=== PATIENT | female | born 1940 | race Caucasian/White ===

== ENCOUNTER 2023-03-12 11:14 | Outpatient (OUT) | payer MEDICARE, SELFPAY ==
[2023-03-12 11:58] LABS: Basophils Percent Auto 0.9 % (0.2-2.0); Eosinophils Absolute Auto 0.1 10^3/uL (0.0-0.7); Hemoglobin 12.2 g/dL (12.0-16.0); Immature Granulocytes Abs Auto 0.02 10^3/uL (0.00-0.03); Immature Granulocytes Pct Auto 0.5 % (0.0-0.5); Lymphocytes Absolute Auto 0.8 10^3/uL (1.2-3.8); Lymphocytes Percent Auto 18.2 % (20.5-60.0); Mean Corpuscular HGB Conc 31.3 g/dL (29.9-35.2); Mean Corpuscular Hemoglobin 27.3 pg (26.7-34.0); Mean Corpuscular Volume 87.2 fL (81.0-99.0); Mean Platelet Volume 9.2 fL (9.5-13.5); Monocytes Absolute Auto 0.4 10^3/uL (0.3-0.8); Neutrophils Percent Auto 68.4 % (43.0-75.0); Platelet Count 188 10^3/uL (150-450); Red Blood Count 4.47 10^6/uL (4.20-5.40); Red Cell Distribution Width 14.5 % (11.0-15.0); White Blood Count 4.4 10^3/uL (4.0-11.0)
[2023-03-12 12:13] LABS: Bilirubin Urine NEGATIVE (NEGATIVE); Blood Urine SMALL (NEGATIVE); Clarity Urine CLEAR (CLEAR); Color Urine LT. YELLOW (YELLOW); Glucose Urine UA NEGATIVE (NEGATIVE); Ketones Urine NEGATIVE (NEGATIVE); Leukocyte Esterase Urine SMALL (NEGATIVE); Nitrite Urine POSITIVE (NEGATIVE); Protein Urine NEGATIVE (NEG/TRACE); Urobilinogen Urine 0.2 EU/dL (0.2-1.0); pH Urine 6.5 (5.0-9.0)
[2023-03-12 12:19] LABS: Percent Iron Saturation 21.4 %
[2023-03-12 12:27] LABS: Alanine Aminotransferase 30 U/L (14-59); Albumin Globulin Ratio 0.9; Albumin Level 3.7 g/dL (3.4-5.0); Alkaline Phosphatase 80 U/L (46-116); Anion Gap 9.3; Aspartate Amino Transferase 27 U/L (15-37); BUN Creatinine Ratio 17.2; Bilirubin Total 0.5 mg/dL (0.2-1.0); Calcium 9.3 mg/dL (8.5-10.1); Carbon Dioxide 30.4 mmol/L (21.0-32.0); Chloride 100 mmol/L (98-107); Estimated GFR (African America >60 (>=60); Estimated GFR (Non-African Ame >60 (>=60); Globulin 3.9 g/dL; Glucose 104 mg/dL (74-106); Magnesium 1.7 mg/dL (1.8-2.4); Potassium 3.7 mmol/L (3.5-5.1); Sodium 136 mmol/L (136-145); Thyroid Stimulating Hormone 0.983 uIU/mL (0.358-3.740); Total Protein 7.6 g/dL (6.4-8.2)
[2023-03-12 13:58] LABS: Free T4 0.91 ng/dL (0.76-1.46); Vitamin B12 >6000.0 pg/mL (193.0-986.0)
[2023-03-13 06:14] LABS: Transferrin 232 mg/dL (149-313)
== END 2023-03-12 11:15 | disposition home or self-care (01) ==
LOC: LAB 11:21
PROVIDERS: PCP Family Medicine; Visit Provider Family Medicine
DX: I25.118 Atherosclerotic heart disease of native coronary artery with other forms of angina pectoris (principal); R54 Age-related physical debility; D50.0 Iron deficiency anemia secondary to blood loss (chronic); I10 Essential (primary) hypertension; G62.89 Other specified polyneuropathies; R82.89 Other abnormal findings on cytological and histological examination of urine
CPT/HCPCS: 36415; 80053; 81003; 82607; 82728; 82746; 83540; 83550; 83735; 84439; 84443; 84466; 85025; 87086; 87150; 87186

== ENCOUNTER 2023-05-06 10:05 | Outpatient (OUT) | payer MEDICARE, SELFPAY ==
--- NOTE | 2023-05-06 10:12 | XR_ITS ---
The [address] [address] Patient Name: NOLVIA FERRARI MRN: [id number] date: 1940 Sex: F Assigned Patient Location: [facility] Current Patient Location: [facility] Accession/Order Number: [id number] Exam Date: 05/06/2023 10:24 Report Date: 05/06/2023 13:13 At the request of: NON-STAFF PHYSICIAN Procedure: XR abdomen 1V EXAMINATION: XR abdomen 1V HISTORY: Kidney stone N20.0 COMPARISON: XR lumbar spine 03/06/2020, XR sacrum/coccyx 06/09/2018 FINDINGS: KIDNEY/URETER - RIGHT: No visible renal or ureteral calcifications. KIDNEY/URETER - LEFT: Small calcification projecting over inferior pole; kidney stone versus bowel content. PELVIS: Calcifications within the right and left adnexa of uncertain etiology. BOWEL: No abnormal dilation or deviation. BONES: Degenerative changes of the spine and prior compression fractures. OTHER: Thin curvilinear wire-like density projecting over left epigastric region of uncertain etiology. XR/XR abdomen 1V IMPRESSION: 1. Possible left nephrolithiasis. 2. Pelvic calcifications are suspected to be due to atherosclerotic disease is seen on prior study. A distal ureteral stone cannot be completely excluded. Electronically authenticated by: LOIDA WHITE Date: 05/06/2023 13:13
== END 2023-05-06 10:06 | disposition home or self-care (01) ==
LOC: RAD 10:07
PROVIDERS: PCP Family Medicine
DX: N20.0 Calculus of kidney (principal); R93.5 Abnormal findings on diagnostic imaging of other abdominal regions, including retroperitoneum; R93.422 Abnormal radiologic findings on diagnostic imaging of left kidney
CPT/HCPCS: 74018

== ENCOUNTER 2023-07-20 07:12 | Outpatient (RCR) | payer MEDICARE, SELFPAY ==
--- NOTE | 2023-03-16 14:46 | CR1_ITS ---
The 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
--- NOTE | 2023-04-14 14:13 | CR1_ITS ---
The 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
--- NOTE | 2023-05-12 08:35 | CR1_ITS ---
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
--- NOTE | 2023-06-11 10:29 | CR1_ITS ---
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
--- NOTE | 2023-07-16 11:57 | CR1_ITS ---
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
== END 2023-07-20 12:43 | disposition home or self-care (01) ==
LOC: CR 07:12
PROVIDERS: PCP Family Medicine; Visit Provider Internal Medicine Cardiovascular Disease
DX: I25.119 Atherosclerotic heart disease of native coronary artery with unspecified angina pectoris (principal); Z95.1 Presence of aortocoronary bypass graft
CPT/HCPCS: 93797; 93798

== ENCOUNTER 2023-10-05 08:18 | Outpatient (OUT) | payer MEDICARE, SELFPAY ==
[2023-10-05 10:04] LABS: Alanine Aminotransferase 35 U/L (14-59); Albumin Globulin Ratio 0.9; Albumin Level 3.6 g/dL (3.4-5.0); Alkaline Phosphatase 65 U/L (46-116); Anion Gap 11.9; Aspartate Amino Transferase 28 U/L (15-37); BUN Creatinine Ratio 28.9; Bilirubin Total 0.8 mg/dL (0.2-1.0); Calcium 9.3 mg/dL (8.5-10.1); Carbon Dioxide 30.1 mmol/L (21.0-32.0); Chloride 103 mmol/L (98-107); Chol HDL Ratio 1.8; Cholesterol 123 mg/dL (<=200); Estimated GFR (African America >60 (>=60); Estimated GFR (Non-African Ame 60 (>=60); Globulin 3.8 g/dL; Glucose 97 mg/dL (74-106); HDL Cholesterol 68 mg/dL (40-60); Sodium 141 mmol/L (136-145); Total Protein 7.4 g/dL (6.4-8.2); Triglycerides 60 mg/dL (<=150)
== END 2023-10-05 08:19 | disposition home or self-care (01) ==
LOC: LAB 08:20
PROVIDERS: PCP Family Medicine
DX: I25.10 Atherosclerotic heart disease of native coronary artery without angina pectoris (principal); E78.5 Hyperlipidemia, unspecified; E87.6 Hypokalemia
CPT/HCPCS: 36415; 80053; 80061

== ENCOUNTER 2024-01-20 15:26 | Outpatient (RCR) | payer MEDICARE, SELFPAY | END 2024-02-18 16:44 | disposition home or self-care (01) | LOC: PT 15:26 | PROVIDERS: PCP Family Medicine; Visit Provider Family Medicine | DX: R26.89 Other abnormalities of gait and mobility (principal) | CPT/HCPCS: 97110; 97112; 97161; 97530 ==

== ENCOUNTER 2024-04-14 12:55 | Outpatient (REF) | payer MEDICARE, SELFPAY ==
[2024-04-14 14:55] LABS: C. Difficile PCR NEGATIVE (NEGATIVE)
[2024-04-15 15:08] LABS: Giardia lamblia Ag, EIA Negative (Negative)
[2024-04-17 22:06] LABS: Calprotectin, Fecal 78 ug/g (0-120)
== END 2024-04-14 12:56 | disposition home or self-care (01) ==
LOC: LAB 12:55
PROVIDERS: PCP Family Medicine; Visit Provider Family Medicine
DX: R19.7 Diarrhea, unspecified (principal)
CPT/HCPCS: 83993; 87045; 87046; 87177; 87209; 87329; 87427; 87493

== ENCOUNTER 2024-04-21 09:16 | Outpatient (OUT) | payer MEDICARE, SELFPAY ==
[2024-04-21 10:16] LABS: Alanine Aminotransferase 38 U/L (14-59); Albumin Globulin Ratio 1.1; Albumin Level 3.8 g/dL (3.4-5.0); Alkaline Phosphatase 80 U/L (46-116); Aspartate Amino Transferase 30 U/L (15-37); BUN Creatinine Ratio 21.1; Bilirubin Total 0.7 mg/dL (0.2-1.0); Calcium 9.5 mg/dL (8.5-10.1); Chloride 105 mmol/L (98-107); Chol HDL Ratio 1.6; Cholesterol 94 mg/dL (<=200); Estimated GFR (African America >60 (>=60); Estimated GFR (Non-African Ame 60 (>=60); Globulin 3.5 g/dL; Glucose 94 mg/dL (74-106); HDL Cholesterol 57 mg/dL (40-60); LDL Cholesterol Calculated 27.4 mg/dL; Sodium 143 mmol/L (136-145); Total Protein 7.3 g/dL (6.4-8.2); Triglycerides 48 mg/dL (<=150); VLDL CHOLESTEROL 9.6 mg/dL
== END 2024-04-21 09:17 | disposition home or self-care (01) ==
LOC: LAB 09:18
PROVIDERS: PCP Family Medicine; Visit Provider Internal Medicine Interventional Cardiology
DX: E78.5 Hyperlipidemia, unspecified (principal); I25.118 Atherosclerotic heart disease of native coronary artery with other forms of angina pectoris; I50.20 Unspecified systolic (congestive) heart failure; I25.5 Ischemic cardiomyopathy; I11.0 Hypertensive heart disease with heart failure
CPT/HCPCS: 36415; 80053; 80061

== ENCOUNTER 2025-03-29 10:53 | Outpatient (RCR) | payer MEDICARE, SELFPAY | END 2025-06-08 12:09 | disposition home or self-care (01) | LOC: PT 10:53 | PROVIDERS: PCP Family Medicine; Visit Provider Family Medicine | DX: R53.1 Weakness (principal); R26.81 Unsteadiness on feet; M54.2 Cervicalgia | CPT/HCPCS: 97110; 97112; 97140; 97162; 97530 ==

== ENCOUNTER 2025-04-11 09:51 | Outpatient (RCR) | payer MEDICARE, SELFPAY | END 2025-05-29 07:01 | disposition home or self-care (01) | LOC: ST 09:51 | PROVIDERS: PCP Family Medicine; Visit Provider Family Medicine | DX: M62.542 Muscle wasting and atrophy, not elsewhere classified, left hand (principal); M54.2 Cervicalgia; R49.0 Dysphonia | CPT/HCPCS: 92507; 92524 ==

== ENCOUNTER 2025-04-11 09:51 | Outpatient (RCR) | payer MEDICARE, SELFPAY | END 2025-04-12 14:18 | disposition home or self-care (01) | LOC: OT 09:51 | PROVIDERS: PCP Family Medicine; Visit Provider Family Medicine | DX: M62.542 Muscle wasting and atrophy, not elsewhere classified, left hand (principal); M54.2 Cervicalgia | CPT/HCPCS: 97110; 97166 ==

== ENCOUNTER 2025-04-12 15:25 | Outpatient (OUT) | payer MEDICARE, SELFPAY ==
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
--- OUTSIDE RECORDS SUMMARY | 2025-04-12 13:45 | XMS_ITS | Encounter Summary ---
Author Organization [facility] Address [address] [place] [address] Phone Care Team Providers Care Physician Office Specialist Name Role Phone Christiano Taylor Primary Care Provider [phone] Reason for Referral * Consultation (Routine) - Authorized Specialty Diagnoses / Procedures Referred By Volodymyr t Referred To Contact Cardiology Diagnoses Coronary artery disease involving coronary bypass graft of [place] heart without angina pectoris Procedures Follow Up In Cardiology Colette Trevizo MD [address] [place] [address] Phone: tel: fax: Colette Trevizo MD [address] [place] [address] Phone: tel: fax: Referral ID Status Reason Start Date Expiration Date V isits Requested Visits Authorized [id number] Authorized 04/12/2025 04/12/2026 1 1 Reason for Visit * Reason Comments Follow-up [facility] for coronary artery disease, denies cardiac c/o at this time. * Consultation (Routine) - Authorized Specialty Diagnoses / Procedures Referred By Volodymyr t Referred To Contact Cardiology Diagnoses Coronary artery disease of [place] artery of [place] heart with stable angina pectoris Procedures Follow Up In Cardiology Colette Trevizo MD [address] [place] [address] Phone: tel: fax: Colette Trevizo MD [address] [facility] [address] [place] [address] Phone: tel: fax: Referral ID Status Reason Start Date Expiration Date V isits Requested Visits Authorized [id number] Authorized 10/26/2024 10/26/2025 1 1 Encounter Details Date Type Department Care Team (Late st Contact Info) Description 04/12/2025 1:45 PM EDT Office Visit [facility] [address] [facility] [address] [place] [address] Colette Trevizo MD [address] [facility] [address] [place], [place] [id number] Coronary artery disease involving coronary bypass graft of [place] heart without angina pectoris; History of coronary artery bypass graft; Essential hypertension; Chronic kidney disease, stage 3b (Multi); Hypokalemia; Chronic systolic congestive heart failure; YOEL (obstructive sleep apnea); BMI 21.0-21.9, adult; Never smoked tobacco; Mixed hyperlipidemia; Coronary artery disease of [place] artery of [place] heart with stable angina pectoris Discharge Disposition: Home Social History Tobacco Use Types Packs/Day Years Used Date Smoking Tobacco: Never Smokeless Tobacco: Never Tobacco Cessation:Counseling Given: Not Answered Alcohol Use Standard Drinks/Week Comments Never 0 (1 standard drink = 0.6 oz pur e alcohol) Overall Financial Resource Strain (CARDIA) Answe r Date Recorded How hard is it for you to pa y for the very basics like food, housing, medical care, and heating? Not hard at all 06/12/2024 PRAPARE - Transportation Answer Date Re corded In the past 12 months, has l ack of transportation kept you from medical appointments or from getting medications? No 11/2023 In the past 12 months, has l ack of transportation kept you from meetings, work, or from getting things needed for daily living? No 06/12/2024 Housing Stability Vital Sign Answer Rodo e Recorded In the last 12 months, was t here a time when you were not able to pay the mortgage or rent on time? No 06/12/2024 In the past 12 months, how m any times have you moved where you were living? 0 06/12/2024 At any time in the past 12 m [facility], were you homeless or living in a fci (including now)? No 06/12/2024 Comments Unknown Sex and Gender Information Value Date Recorded Sex Assigned at Female 05/24/2024 4:58 AM EDT Legal Sex Female 10:09 AM EST Gender Identity Female 05/24/2024 4:58 AM EDT Sexual Orientation Not on file documented as of this encounter Last Filed Vital Signs Vital Sign Reading Time Taken Comments Blood Pressure 110/60 04/12/2025 2:02 PM EDT Pulse 60 04/12/2025 2:02 PM EDT Temperature - - Respiratory Rate - - Oxygen Saturation - - Inhaled Oxygen Concentration - - Weight 52.4 kg (115 lb 9.6 oz) 04/12/2025 2:02 P M EDT Height 154.9 cm (5' 1 ) 04/12/2025 2:02 PM EDT Body Mass Index 21.84 04/12/2025 2:02 PM EDT documented in this encounter Functional Status * Are you deaf or do you have serious difficulty hearing? Answer Date of Assessment Author No 06/13/2024 3:42 PM Stephania Zepeda RN * Are you blind or do you have serious difficulty seeing, even when wearing glasses? Answer Date of Assessment Author No 06/13/2024 3:42 PM Stephania Zepeda RN * Do you have serious difficulty walking or climbing stairs? Answer Date of Assessment Author Yes 06/13/2024 3:42 PM Stephania Zepeda RN * Do you have serious difficulty dressing or bathing? Answer Date of Assessment Author No 06/13/2024 3:42 PM Stephania Zepeda RN * Because of a physical, mental, or emotional condition, do you have serious difficulty doing errandsalone such as visiting the doctor? Answer Date of Assessment Author No 06/13/2024 3:42 PM Stephania Zepeda RN documented as of this encounter Mental Status * Because of a physical, mental, or emotional condition, do you have serious difficulty concentrating, remembering, or making decisions? (5 years old or older) Answer Entry Date Author No 06/13/2024 3:42 PM Stephania Zepeda RN documented in this encounter Patient Instructions * Patient Instructions* Mayra Barraza LPN - 04/12/2025 1:45 PM EDT Please bring all medicines, vitamins, and herbal supplements with you when you come to the office. Prescriptions will not be filled unless you are compliant with your follow up appointments or have a follow up appointment scheduled as per instruction of your physician. Refills should be requested at the time of your visit. BMI normal documented in this encounter Plan of Treatment Upcoming Encounters Date Type Department Care Team (Late st Contact Info) Description 04/22/2026 12:30 PM EDT Office Visit [facility] [address] [facility] [address] [place] [address] Colette Trevizo MD [address] [facility] [address] [place] [address] Scheduled Orders Name Type Priority Associated Diagnoses Orde r Schedule Basic Metabolic Panel Lab Routine Chronic kidney disease, stage 3b (Multi) Chronic systolic congestive heart failure Expected: 04/12/2025 (Approximate), Expires: 04/12/2026 Lipid Panel Lab Routine Coronary artery disease involving coronary bypass graft of [place] heart without angina pectoris History of coronary artery bypass graft Expected: 04/12/2025, Expires: 04/12/2026 Comprehensive Metabolic Panel Lab Routine Coronary artery disease involving coronary bypass graft of [place] heart without angina pectoris Chronic kidney disease, stage 3b (Multi) Chronic systolic congestive heart failure Expected: 04/12/2025, Expires: 04/12/2026 documented as of this encounter Visit Diagnoses Diagnosis Coronary artery disease involving coronary bypass graft of [place] heart without angina pectoris History of coronary artery bypass graft Postsurgical aortocoronary bypass status Essential hypertension Unspecified essential hypertension Chronic kidney disease, stage 3b (Multi) Hypokalemia Hypopotassemia Chronic systolic congestive heart failure YOEL (obstructive sleep apnea) Obstructive sleep apnea (adult) (pediatric) BMI 21.0-21.9, adult Never smoked tobacco Mixed hyperlipidemia Coronary artery disease of [place] artery of [place] heart with stable angina pectoris documented in this encounter Additional Health Concerns Assessment Noted Time A fall risk assessment has been complete d for the patient 04/12/2025 2:02 PM EDT documented as of this encounter Care Teams Physician Office Specialist Relationship Specialty Start Date End Date Christiano Taylor DO PCP - General 11/12/22 documented as of this encounter
--- OUTSIDE RECORDS SUMMARY | 2025-04-12 15:34 | XMS_ITS | Encounter Summary ---
Author Organization [facility] Address [address] [place] [address] Care Team Providers Care Dragline Engineer Name Role Phone Christiano Taylor DO Unavailable [phone] Christiano Taylor DO Primary Care Provider +- [phone] Encounter Details Date Type Department Care Team (Late st Contact Info) Description 07/26/2024 [facility] [address] [facility] [place] [address] [place] [address] Christiano Taylor, DO [address] [facility] [place] [address] [place] [address] Social History Tobacco Use Types Packs/Day Years Used Date Smoking Tobacco: Never Passive Smoke Exposure: Never Smokeless Tobacco: Never Alcohol Use Standard Drinks/Week Comments Never 0 [...] Date Recorded Patient Health Questionnaire-2 Score 0 04/13/2024 Comments Unknown Sex and Gender Information Value Date Recorded Sex Assigned at Not on file Legal Sex Female 6:57 PM EDT Gender Identity Not on file Sexual Orientation Not on file documented as of this encounter Plan of Treatment Upcoming Encounters Date Type Department Care Team (Late st Contact Info) Description 06/05/2025 1:45 PM EDT [facility] Visit [facility] 703 [facility] 150 [place] [address] Wally Gonzales MD [address] [facility] 150 [place] [address] 06/28/2025 11:20 AM EST Procedure Visit [facility] 112 [facility] 120 [place] [address] Tawanda Girard DPM 3006 [facility] 5 [place] [address] documented as of this encounter Visit Diagnoses Not on filedocumented in this encounter Care Teams Dragline Engineer Relationship Specialty Start Date End Date Christiano Taylor DO [address] [facility] [address] [place] [address] PCP - [employer] 08/09/20 Christiano Taylor DO [address] [facility] 230 [place] [address] PCP - General Family Medicine 03/09/23 documented as of this encounter
--- OUTSIDE RECORDS SUMMARY | 2025-04-12 15:34 | XMS_ITS | Encounter Summary ---
Author Organization [facility] Address [address] [place] [address] Care Team Providers Care Natural Gas Technician Name Role Phone Christiano Taylor DO Unavailable [phone] Christiano Taylor DO Primary Care Provider +- [phone] Encounter Details Date Type Department Care Team (Late st Contact Info) Description 07/11/2024 Abstract [facility] [address] [facility] [place] [address] [place] [address] Christiano Taylor, DO [address] [facility] [place] [address] [place] [address] Social History Tobacco Use Types Packs/Day Years [...] EDT Office Visit [facility] 703 [facility] 150 [place] [address] Wally Gonzales MD 703 [facility] 150 [place] [address] 06/28/2025 11:20 AM EST Procedure Visit [facility] 112 [facility] 120 [place] [address] Tawanda Girard DPM 3006 [facility] 5 [place] [address] documented as of this encounter Visit Diagnoses Not on filedocumented in this encounter Care Teams Natural Gas Technician Relationship Specialty Start Date End Date Christiano Taylor DO [address] [facility] 230 [place] [address] PCP - [employer] 08/09/20 Christiano Taylor DO [address] [facility] 230 [place] [address] PCP - General Family Medicine 03/09/23 documented as of this encounter
--- OUTSIDE RECORDS SUMMARY | 2025-04-12 15:34 | XMS_ITS | Encounter Summary ---
Author Organization [facility] Address [address] [place] [address] Care Team Providers Care Director Of Corporate Communications Name Role Phone Christiano Taylor DO Unavailable [phone] Christiano Taylor DO Primary Care Provider +- [phone] Encounter Details Date Type Department Care Team (Late st Contact Info) Description 11/28/2024 Abstract [facility] [address] [facility] [place] [address] [place] [address] Christiano Taylor, DO [address] [facility] [place] [address] [place] [address] Social History Tobacco Use Types Packs/Day Years [...] EDT Office Visit [facility] 703 [facility] 150 [place] [address] Wally Gonzales MD 703 [facility] 150 [place] [address] 06/28/2025 11:20 AM EST Procedure Visit [facility] [address] [facility] 120 [place] [address] Tawanda Girard DPM 3006 [facility] 5 [place] [address] documented as of this encounter Visit Diagnoses Not on filedocumented in this encounter Care Teams Director Of Corporate Communications Relationship Specialty Start Date End Date Christiano Taylor DO [address] [facility] 230 [place] [address] PCP - [employer] 08/09/20 Christiano Taylor DO [address] [facility] 230 [place] [address] PCP - General Family Medicine 03/09/23 documented as of this encounter
--- OUTSIDE RECORDS SUMMARY | 2025-04-12 15:34 | XMS_ITS | Encounter Summary ---
Author Organization [facility] Address [address] [place] [address] Care Team Providers Care Puff Ironer Name Role Phone Christiano Taylor DO Unavailable [phone] Christiano Taylor DO Primary Care Provider +- [phone] Encounter Details Date Type Department Care Team (Late st Contact Info) Description 10/05/2024 Orders Only [facility] [place] [facility] [address] [facility] [address] [place] [address] [place] [phone] Christiano Taylor, DO [address] [facility] [place] [address] [place] [address] Social History Tobacco Use Types Packs/Day Years [...] Date Recorded Patient Health Questionnaire-2 Score 0 09/22/2024 Comments Unknown Sex and Gender Information Value Date Recorded Sex Assigned at Not on file Legal Sex Female 6:57 PM EDT Gender Identity Not on file Sexual Orientation Not on file documented as of this encounter Plan of Treatment Upcoming Encounters Date Type Department Care Team (Late st Contact Info) Description 06/05/2025 1:45 PM EDT Office Visit [facility] [address] [facility] 150 [place] [address] Wally Gonzales MD 703 [facility] 150 [place] [address] 06/28/2025 11:20 AM EST Procedure Visit [facility] 112 [facility] 120 [place] [address] Tawanda Girard DPM 3006 [facility] 5 [place] [address] documented as of this encounter Procedures Procedure Name Priority Date/Time Associated Diagnosis Comments BI MAMMOGRAM SCREENING BILATERAL Routine 10/04/2024 10:14 AM EST documented in this encounter Results * Bilateral screening mammogram (10/04/2024 10:14 AM EST) Anatomical Region Laterality Modality Breast Bilateral Mammography us Christiano Taylor DO IMG BI PROCEDURES Final Re sult documented in this encounter Visit Diagnoses Not on filedocumented in this encounter Care Teams Puff Ironer Relationship Specialty Start Date End Date Christiano Taylor DO [address] [place] [address] [place] [address] PCP - [employer] 08/09/20 Christiano Taylor DO [address] [place] [address] [place] [address] PCP - General Family Medicine 03/09/23 documented as of this encounter
--- OUTSIDE RECORDS SUMMARY | 2025-04-12 15:34 | XMS_ITS | Encounter Summary ---
Author Organization [facility] Address [address] [place] [address] Care Team Providers Care Refrigeration Insulator Name Role Phone Christiano Taylor DO Unavailable [phone] Christiano Taylor DO Primary Care Provider [phone] Encounter Details Date Type Department Care Team (Late Contact Info) Description 07/14/2024 Clinisync Result Encounter [facility] External Department Unsolicited Provider, Generic External Data Social History Tobacco Use Types Packs/Day Years [...] Encounters Date Type Department Care Team (Late Contact Info) Description 06/05/2025 1:45 PM EDT [facility] Visit [facility] [address] [facility] [place] [address] [place] [address] Wally Gonzales MD 703 [facility] 150 [place] [address] 06/28/2025 11:20 AM EST Procedure [facility] 112 [facility] 120 [place] [address] Tawanda Girard DPM 3006 [facility] 5 [place] [address] documented as of this encounter Procedures Procedure Name Priority Date/Time Associated Diagnosis Comments XR CERVICAL SPINE 2-3 VIEWS 07/14/2024 3:54 PM EST documented in this encounter Results * XR cervical spine 2 or 3 views (07/14/2024 3:54 PM EST) Anatomical Region Laterality Modality Spine, C-spine Radiographic Kate ging 07/14/2024 3:54 PM EST Narrative 07/15/2024 8:07 PM EST Interpreted By: Kenji Quinonez, STUDY: XR CERVICAL SPINE 2-3 VIEWS; 07/14/2024 4:05 pm INDICATION: Signs/Symptoms:NECK PAIN. COMPARISON: 06/14/2024 ACCESSION NUMBER(S): [id number] ORDERING CLINICIAN: CHANEL CRUZ FINDINGS: Interval redemonstration of grade 1 anterolisthesis C3 on C4 unchanged redemonstration of anterior cervical discectomy and fusion C4 through C6 with interbody fusion with allograft. No evidence of hardware complication. Unchanged redemonstration of posterior hardware fusion spanning C2-T3. No evidence of hardware failure. Atlantoaxial relationship is maintained. Soft tissues intact. No fracture. Grade 1 anterolisthesis C7 on T1 similar to prior exam. Previously described fracture C6-C7 is not well visualized on this examination similar to prior. 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 IMPRESSION Unchanged redemonstration of anterior and posterior hardware fusion as described. No evidence of hardware complication. Grade 1 anterolisthesis C7 on T1 and C3 on C4. MACRO none Signed by: Kenji Quinonez 07/15/2024 8:07 PM Dictation workstation: [id number] Procedure Note Radiology, Radiologist, MD - 07/15/2024 Interpreted By: Kenji Quinonez, STUDY: XR CERVICAL SPINE 2-3 VIEWS; 07/14/2024 4:05 pm INDICATION: Signs/Symptoms:NECK PAIN. COMPARISON: 06/14/2024 ACCESSION NUMBER(S): [id number] ORDERING CLINICIAN: CHANEL CRUZ FINDINGS: Interval redemonstration of grade 1 anterolisthesis C3 on C4 unchanged redemonstration of anterior cervical discectomy and fusion C4 through C6 with interbody fusion with allograft. No evidence of hardware complication. Unchanged redemonstration of posterior hardware fusion spanning C2-T3. No evidence of hardware failure. Atlantoaxial relationship is maintained. Soft tissues intact. No fracture. Grade 1 anterolisthesis C7 on T1 similar to prior exam. Previously described fracture C6-C7 is not well visualized on this examination similar to prior. 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 IMPRESSION Unchanged redemonstration of anterior and posterior hardware fusion as described. No evidence of hardware complication. Grade 1 anterolisthesis C7 on T1 and C3 on C4. MACRO none Signed by: Kenji Quinonez 07/15/2024 8:07 PM Dictation workstation: [id number] Generic External Data Provider IMG XR PROCEDURES Final Result documented in this encounter Visit Diagnoses Not on filedocumented in this encounter Care Teams Refrigeration Insulator Relationship Specialty Start Date End Date Christiano Taylor DO [address] [place] [address] [place] [address] PCP - [employer] 08/09/20 Christiano Taylor, [address] [place] [address] [place] [address] PCP - General Family Medicine 03/09/23 documented as of this encounter
--- OUTSIDE RECORDS SUMMARY | 2025-04-12 15:34 | XMS_ITS | Encounter Summary ---
Author Organization [facility] Address [address] [place] [address] Care Team Providers Care Customer Experience Leader Name Role Phone Josh Taylor DO Unavailable [phone] Josh Taylor DO Primary Care Provider [phone]- [phone] Encounter Details Date Type Department Care Team (Late Contact Info) Description 01/25/2023 Clinisync Result Encounter [facility] External Department Unsolicited Provider, Generic External Data Social History Tobacco Use Types Packs/Day Years Used Date Smoking Tobacco: Never Assessed Comments Unknown Sex and Gender Information Value [...] 7[address] [facility] 150 [place] [address] Wally Gonzales MD 703 [facility] 150 [place] [address] 06/28/2025 11:20 AM EST Procedure Visit [facility] 112 [facility] 120 [place] [address] Tawanda Girard DPM 3006 [facility] 5 [place] [address] documented as of this encounter Procedures Procedure Name Priority Date/Time Associated Diagnosis Comments CHEST 2 VIEW PA AND LAT 01/25/2023 12:45 PM EDT documented in this encounter Results * CHEST 2 VIEW PA AND LAT (01/25/2023 12:45 PM EDT) Anatomical Region Laterality Modality Other 01/25/2023 12:4 5 PM EDT Narrative 01/26/2023 6:57 PM EDT Patient Name: MARSHA WHEATLEY STUDY: TH CHEST 2 VIEW PA AND LAT; 01/25/2023 12:45 pm 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 COMPARISON: 01/01/2023. ACCESSION NUMBER(S): [id number] ORDERING CLINICIAN: LUIS REDDING FINDINGS: CARDIOMEDIASTINAL SILHOUETTE: Cardiomegaly, mild aortic prominence and postoperative changes of the mediastinum are similar to prior. LUNGS: Bibasilar linear atelectasis or scarring is seen, left greater than right. No definite pleural effusion. No appreciable pneumothorax. ABDOMEN: No remarkable upper abdominal findings. BONES: Generalized osteopenia is present. There is increased thoracic kyphosis and lower thoracic mild levocurvature. A nonacute compression deformity near the thoracolumbar junction with kyphoplasty changes are again seen. Lower cervical hardware is again seen. Sclerotic lesion of the right humeral neck is similar to prior possibly an enchondroma or bone infarct. IMPRESSION: 1. Bibasilar linear atelectasis or scarring, left greater than right. 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 COMPARISON: 01/01/2023. ACCESSION NUMBER(S): [id number] ORDERING CLINICIAN: LUIS REDDING FINDINGS: CARDIOMEDIASTINAL SILHOUETTE: Cardiomegaly, mild aortic prominence and postoperative changes of the mediastinum are similar to prior. LUNGS: Bibasilar linear atelectasis or scarring is seen, left greater than right. No definite pleural effusion. No appreciable pneumothorax. ABDOMEN: No remarkable upper abdominal findings. BONES: Generalized osteopenia is present. There is increased thoracic kyphosis and lower thoracic mild levocurvature. A nonacute compression deformity near the thoracolumbar junction with kyphoplasty changes are again seen. Lower cervical hardware is again seen. Sclerotic lesion of the right humeral neck is similar to prior possibly an enchondroma or bone infarct. IMPRESSION: 1. Bibasilar linear atelectasis or scarring, left greater than right. Electronically signed by: JOSH JOE MD Generic External Data Provider [facility] Final Result documented in this encounter Visit Diagnoses Not on filedocumented in this encounter Care Teams Customer Experience Leader Relationship Specialty Start Date End Date Josh Taylor DO [address] [place] [address] [place] [address] PCP - [employer] 08/09/20 Josh Taylor DO [address] [place] [address] [place] [address] PCP - General Family Medicine 03/09/23 documented as of this encounter
--- OUTSIDE RECORDS SUMMARY | 2025-04-12 15:34 | XMS_ITS | Encounter Summary ---
Author Organization [facility] Address [address] [place] [address] Care Team Providers Care Autism Motor Specialist Name Role Phone Christiano Taylor DO Unavailable [phone] Christiano Taylor DO Primary Care Provider +- [phone] Encounter Details Date Type Department Care Team (Late st Contact Info) Description 07/19/2024 [facility] [address] [facility] [place] [address] [place] [address] Christiano Taylor, DO [address] [facility] [place] [address] [place] [address] Social History Tobacco Use Types Packs/Day Years [...] EDT Office Visit [facility] 703 [facility] 150 [place] [address] Wally Gonzales MD 703 [facility] 150 [place] [address] 06/28/2025 11:20 AM EST Procedure Visit [facility] 112 [facility] 120 [place] [address] Tawanda Girard DPM [address] [facility] 5 [place] [address] documented as of this encounter Visit Diagnoses Not on filedocumented in this encounter Care Teams Autism Motor Specialist Relationship Specialty Start Date End Date hCristiano Taylor DO [address] [facility] 230 [place] [address] PCP - [employer] 08/09/20 Christiano Taylor DO [address] [facility] 230 [place] [address] PCP - General Family Medicine 03/09/23 documented as of this encounter
--- OUTSIDE RECORDS SUMMARY | 2025-04-12 15:34 | XMS_ITS | Clinical Summary ---
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 01/05/2023 8:17 AM Healthcare Power of Atty 01/05/2023 8:17 AM Healthcare Power of Atty 01/05/2023 Living Will 01/05/2023 * Full Code (Latest Code Status on File) Date Activated Date Inactivated Comments 06/15/2024 2:50 PM Question Answer Comments Plan of Care: Code Status Discussion Completed Decision Maker: Patient * Full Code Date Activated Date Inactivated Comments 05/24/2024 5:45 AM 06/15/2024 2:50 PM Question Answer Comments Plan of Care: Code Status Discussion Completed Decision Maker: Patient Care Teams Commercial Driver'S License Driver Relationship Specialty Start Date End Date Christiano Taylor DO PCP - General 11/12/22
--- OUTSIDE RECORDS SUMMARY | 2025-04-12 15:34 | XMS_ITS | Clinical Summary ---
Author Organization [facility] Address [address] [facility], [address] [place] [address] Care Team Providers Care Director Software Development Name Role Phone Rubén Alfred MD Primary Care Provider [phone] Allergies Active Allergy Reactions Criticality Noted Date Comments Oxycodone 10/07/2018 Oxycodone-Acetaminophen 11/11/2018 Medications potassium chloride (MICRO-K) 10 MEQ extended release capsule Take 10 mEq by mouth 2 times daily Active verapamil (VERELAN) 240 MG extended release capsule Take 240 mg by mouth nightly Active lovastatin (MEVACOR) 20 MG tablet Take 20 mg by mouth nightly Active aspirin 81 MG tablet Take 81 mg by mouth daily Active pantoprazole (PROTONIX) 40 MG tablet Take 40 mg by mouth daily Active escitalopram (LEXAPRO) 20 MG tablet Take 20 mg by mouth daily Active ALPRAZolam (XANAX) 0.25 MG tablet Take 0.25 mg by mouth nightly as needed for Sleep.. Active losartan (COZAAR) 25 MG tablet Take 25 mg by mouth daily Active lidocaine (LMX) 4 % creamIndication s:Skin pain Apply a half dollar sized amount to intact skin topically up to twice daily as needed for pain 1 Tube 1 0 Active Lidocaine (ZTLIDO) 1.8 % PTCHIndications :Skin pain Apply 1 patch topically daily 30 patch 0 Active Active Problems No known active problems Family History Medical History Relation Name Comments Cancer Father Arthritis Mother Heart Disease Mother High Blood Pressure Mother Relation Name Status Comments Father Mother Social History Tobacco Use Types Packs/Day Years Used Date Smoking Tobacco: Never Smokeless Tobacco: Never Alcohol Use Standard Drinks/Week Comments Not Currently 0 (1 standard drink = 0.6 oz pur e alcohol) Comments Unknown Sex and Gender Information Value Date Recorded Sex Assigned at Not on file Legal Sex Female 10:39 AM EST Gender Identity Not on file Sexual Orientation Not on file Last Filed Vital Signs Vital Sign Reading Time Taken Comments Blood Pressure - - Pulse - - Temperature 36.4 C (97.5 F) 02/28/2021 10:18 AM EDT Respiratory Rate - - Oxygen Saturation - - Inhaled Oxygen Concentration - - Weight 71 kg (156 lb 9.6 oz) 02/28/2021 10:18 AM EDT Height 154.9 cm (5' 1 ) 02/28/2021 10:18 AM EDT Body Mass Index 29.59 02/28/2021 10:18 AM EDT Plan of Treatment Not on file Insurance [employer] MEDICARE AETNA MEDICARE Care Teams Director Software Development Relationship Specialty Start Date End Date Rubén Alfred MD [address] [id number] PCP - General Family Medicine 09/22/18
--- OUTSIDE RECORDS SUMMARY | 2025-04-12 15:34 | XMS_ITS | Encounter Summary ---
Author Organization [facility] Address [address] [place] [address] Care Team Providers Care Air Traffic Supervisor Name Role Phone Christiano Taylor Sarah DO Unavailable [phone] Christiano Taylor DO Primary Care Provider Encounter Details Date Type Department Care Team (Late Contact Info) Description 01/15/2023 Orders Only [facility] [address] [place] [address] [place] [phone] Christiano Taylor, DO [address] [place] [address] [place] [address] Social History Tobacco Use Types [...] EDT Office Visit [facility] [address] [facility] 150 [place] [address] Wally Gonzales MD [address] [facility] 150 [place] [address] 06/28/2025 11:20 AM EST Procedure Visit [facility] [address] [facility] 120 [place] [address] Tawanda Girard DPM 3[address] [facility] 5 [place] [address] documented as of this encounter Procedures Procedure Name Priority Date/Time Associated Diagnosis Comments TRANSTHORACIC ECHO (TTE) LIMITED Routine 01/14/2023 8:25 AM EDT documented in this encounter Results * Transthoracic echo (TTE) limited (01/14/2023 8:25 AM EDT) Anatomical Region Laterality Modality Heart Ultrasound us Christiano Taylor DO CV ECHO PROCEDURES Final R esult documented in this encounter Visit Diagnoses Not on filedocumented in this encounter Care Teams Air Traffic Supervisor Relationship Specialty Start Date End Date Christiano Taylor DO [address] [place] [address] [place] [address] PCP - [employer] 08/09/20 Christiano Taylor DO [address] [place] [address] [place] [address] PCP - General Family Medicine 03/09/23 documented as of this encounter
--- OUTSIDE RECORDS SUMMARY | 2025-04-12 15:34 | XMS_ITS | Encounter Summary ---
Author Organization [facility] Address [address] [place] [address] Care Team Providers Care Equipment Lead Name Role Phone Christiano Taylor DO Unavailable [phone] Christiano Taylor DO Primary Care Provider [phone]- [phone] Encounter Details Date Type Department Care Team (Late st Contact Info) Description 07/20/2024 [facility] [address] [facility] [place] [address] [place] [address] Christiano Taylor, DO [address] [facility] [place] [address] [place] [address] Social History Tobacco Use Types Packs/Day Years [...] EDT Office Visit [facility] [address] [facility] 150 [place] [phone] Wally Gonzales MD [address] [facility] 150 [place] [address] 06/28/2025 11:20 AM EST Procedure Visit [facility] [address] [facility] 120 [place] [address] Tawanda Girard DPM 3[address] [facility] 5 [place] [address] documented as of this encounter Visit Diagnoses Not on filedocumented in this encounter Care Teams Equipment Lead Relationship Specialty Start Date End Date Christiano Taylor DO [address] [facility] 230 [place] [address] PCP - [employer] 08/09/20 Christiano Taylor DO [address] [facility] 230 [place] [address] PCP - General Family Medicine 03/09/23 documented as of this encounter
--- OUTSIDE RECORDS SUMMARY | 2025-04-12 15:35 | XMS_ITS | Encounter Summary ---
Author Organization [facility] Address [address] [place] [address] Care Team Providers Care Employment Attorney Name Role Phone Christiano Taylor DO Unavailable [phone] Christiano Taylor DO Primary Care Provider [phone]- [phone] Encounter Details Date Type Department Care Team (Late st Contact Info) Description 04/05/2025 Orders Only [facility] [address] [facility] 150 [place] [address] Wally Gonzales MD 7[address] [facility] 150 [place] [address] Social History Tobacco Use Types [...] EDT Office Visit [facility] [address] [facility] 150 [place] [address] Wally Gonzales MD 7[address] [facility] 150 [place] [address] 06/28/2025 11:20 AM EST Procedure Visit [facility] 112 [facility] 120 [place] [phone] Tawanda Girard DPM 3[address] [facility] 5 [place] [address] documented as of this encounter Procedures Procedure Name Priority Date/Time Associated Diagnosis Comments MAMMOGRAM DIAGNOSTIC WITH ULTRASOUND, LEFT Routine 11/14/2024 10:34 AM EDT documented in this encounter Results * MAMMOGRAM DIAGNOSTIC WITH ULTRASOUND, LEFT (11/14/2024 10:34 AM EDT) Anatomical Region Laterality Modality Radiographic Kate ging us Wally Oshea MD IMG XR PROCEDURES Final Resu lt documented in this encounter Visit Diagnoses Not on filedocumented in this encounter Care Teams Employment Attorney Relationship Specialty Start Date End Date Christiano Taylor DO [address] [place] [address] [place] [address] PCP - [employer] 08/09/20 Christiano Taylor DO [address] [place] [address] [place] [address] PCP - General Family Medicine 03/09/23 documented as of this encounter
--- OUTSIDE RECORDS SUMMARY | 2025-04-12 15:35 | XMS_ITS | Encounter Summary ---
Author Organization [facility] Address [address] [place] [address] Phone Care Team Providers Care Welding Machine Operator Gas Name Role Phone Christiano Taylor DO Primary Care Provider [phone] Encounter Details Date Type Department Care Team (Late st Contact Info) Description 11/09/2024 Scanned Document [facility] [address] [place] [phone] Scanning, Generic Provider Social History Tobacco Use Types Packs/Day Years [...] any time in the past [facility] were you homeless or living in a skilled nursing (including now)? No 06/12/2024 Comments Unknown Sex and Gender Information Value Date Recorded Sex Assigned at Female 05/24/2024 4:58 AM EDT Legal Sex Female 10:09 AM EST Gender Identity Female 05/24/2024 4:58 AM EDT Sexual Orientation Not on file COVID-19 Exposure Response Date Recorded In the last 10 days, have yo u been in contact with someone who was confirmed or suspected to have Coronavirus/COVID-19? No / Unsure 10/26/2024 10:43 AM EDT documented as of this encounter Functional Status * Are you [...] Stephania Zepeda RN documented in this encounter Plan of Treatment Upcoming Encounters Date Type Department Care Team (Late st Contact Info) Description 04/22/2026 12:30 PM EDT Office Visit [facility] [address] [facility] 250 [place] [address] Colette Trevizo MD [address] [facility] 130 [place] [address] documented as of this encounter Visit Diagnoses Not on filedocumented in this encounter Additional Health Concerns Assessment Noted Time A fall risk assessment has been complete d for the patient 10/25/2023 10:10 AM EDT documented as of this encounter Care Teams Welding Machine Operator Gas Relationship Specialty Start Date End Date Christiano Taylor DO PCP - General 11/12/22 documented as of this encounter
--- OUTSIDE RECORDS SUMMARY | 2025-04-12 15:35 | XMS_ITS | Encounter Summary ---
Author Organization [facility] Address [address] [place] [address] Care Team Providers Care Pulverizer Operator Name Role Phone Christiano Taylor DO Unavailable [phone] Christiano Taylor DO Primary Care Provider [phone] Encounter Details Date Type Department Care Team (Late Contact Info) Description 05/24/2024 Clinisync Result Encounter [facility] External Department Unsolicited [...] EDT [facility] Visit [facility] [address] [facility] [place] [address] [place] [address] Wally Gonzales MD 703 [facility] [place] [address] [place] [address] 06/28/2025 11:20 AM EST Procedure Visit [facility] [address] [facility] [place] [address] [place] [phone] Tawanda Girard DPM [address] [facility] 5 [place] [address] documented as of this encounter Procedures Procedure Name Priority Date/Time Associated Diagnosis Comments XR CERVICAL SPINE 1 VIEW 05/24/2024 1:41 PM EDT documented in this encounter Results * XR cervical spine 1 view (05/24/2024 1:41 PM EDT) Anatomical Region Laterality Modality Spine, C-spine Radiographic Kate ging 05/24/2024 1:41 PM EDT Narrative 05/24/2024 1:56 PM EDT These images are not reportable by radiology and will not be interpreted by Radiologists. Procedure Note Radiology, Radiologist, - 05/24/2024 These images are not reportable by radiology and will not be interpretedby Radiologists. Generic External Data Provider IMG XR PROCEDURES Final Result documented in this encounter Visit Diagnoses Not on filedocumented in this encounter Care Teams Pulverizer Operator Relationship Specialty Start Date End Date Christiano Taylor DO [address] [place] [address] [place] [address] PCP - [employer] 08/09/20 Christiano Taylor, [address] [place] [address] [place] [address] PCP - General Family Medicine 03/09/23 documented as of this encounter
--- OUTSIDE RECORDS SUMMARY | 2025-04-12 15:35 | XMS_ITS | Encounter Summary ---
Author Organization [facility] Address [address] [place] [address] Care Team Providers Care Locksmith Name Role Phone Christiano Taylor Sarah DO Unavailable [phone] Christiano Taylor DO Primary Care Provider + [phone] Encounter Details Date Type Department Care Team (Late Contact Info) Description 11/08/2023 Abstract [facility] [address] [facility] [address] [place] [address] [place] [phone] Claudia Christiano Smith, DO [address] [facility] [place] [address] [place] [address] Social History Tobacco Use Types Packs/Day Years Used Date Smoking Tobacco: Never Passive Smoke Exposure: Never Smokeless Tobacco: Never Alcohol Use Standard Drinks/Week Comments Never 0 (1 standard drink = 0.6 oz pure alcohol) caffeine intake: 3-4 cups per day PHQ-2 Answer Date Recorded Patient Health Questionnaire-2 Score 0 05/18/2023 Comments Unknown Sex and Gender Information Value Date Recorded Sex Assigned at Not on file Legal Sex Female 6:57 PM EDT Gender Identity Not on file Sexual Orientation Not on file documented as of this encounter Plan of Treatment Upcoming Encounters Date Type Department Care Team (Late Contact Info) Description 06/05/2025 1:45 PM EDT [facility] Visit [facility] 7[address] [facility] 150 [place] [phone] Wally Gonzales MD 703 [facility] 150 [place] [address] 06/28/2025 11:20 AM EST Procedure Visit [facility] [address] [place] [address] [place] [address] Tawanda Girard, DPRoopa 3006 [facility] 5 [place] [address] documented as of this encounter Visit Diagnoses Not on filedocumented in this encounter Care Teams Locksmith Relationship Specialty Start Date End Date Christiano Taylor, DO [address] [place] [address] [place] [address] PCP - [employer] 08/09/20 Christiano Taylor, DO [address] [place] [address] [place] [address] PCP - General Family Medicine 03/09/23 documented as of this encounter
--- OUTSIDE RECORDS SUMMARY | 2025-04-12 15:35 | XMS_ITS | Clinical Summary ---
Author Organization [facility] Address [address] [place] [address] Care Team Providers Care Vegetable Farmworker Name Role Phone NehalChristiano salas Primary Care Provider Bella Wood MD Unavailable [phone] Bhavana Carroll MD Unavailable [phone] Source Comments The following information is NOT included in Care Everywhere downloads:Psychiatric notes, ECG results, Cardiac Rehab notes, Pulmonary Function notes, data from [facility] (includes but not limited toPregnancy data,audiograms, eye exams, pre-surgical evaluation notes, well-child exam data).[facility] Allergies Active Allergy Reactions Criticality Noted Date Comments Acetaminophen Hives 10/07/2022 Other Reaction(s): hives Mirabegron Hives 06/19/2021 Oxycodone Hives,Itching,Other 10/07/2018 Oxycodone-Acetaminophen Hives,Itching 9 Percocet Itching 06/15/2024 Medications clopidogrel (PLAVIX) 75 MG tablet Take 1 Tablet by mouth daily. 30 Tablet 3 07/05/2024 10:14 AM EST 4 Active dorzolamide-lona olol (COSOPT) 22.3-6.8 mg/mL ophthalmic solution Place 1 Drop in both eyes 2 times daily. 4 Active pantoprazole (PROTONIX) 40 MG tablet Take 1 Tablet by mouth daily (30 minutes before breakfast). 30 Tablet 07/05/2024 10:14 AM EST 4 Active latanoprost (XALATAN) 0.005 % ophthalmic solution Place 1 Drop in both eyes at bedtime. 4 Active metoprolol (LOPRESSOR) 50 MG tablet Take 50 mg by mouth 2 times daily. 3 Active calcium carb-cholecalci ferol (OS-EVELYN D) 500-5 MG-MCG TABS per tablet Take 1 Tablet by mouth every morning. Active denosumab (Prolia) 60 MG/ML injection Inject 60 mg under the skin once. Active estradiol (ESTRACE) 0.1 MG/GM vaginal cream Insert 1 g into the vagina. 4 Active Multiple Vitamin (Multi-Vitamin) TABS Take 1 Tablet by mouth every morning. Active nitroglycerin (NITROSTAT) 0.[address] 0.4 mg under the tongue every 5 minutes as needed. 3 Active nystatin-triamc inolone (MYCOLOG II) 238581-1.1 UNIT/GM-% cream Apply topically 2 times daily. 4 Active tiZANidine (ZANAFLEX) 4 MG tablet Take 2 mg by mouth 2 times daily as needed (spasms). 3 Active escitalopram (LEXAPRO) 20 MG tablet Take 20 mg by mouth every morning. 4 Active atorvastatin (LIPITOR) 80 mg tabletIndicatio ns:Hyperlipidem ia Take 80 mg by mouth daily Indications: High Amount of Fats in the Blood. Active lisinopril (ZESTRIL) 5 MG tabletIndicatio ns:Acute Myocardial Infarction,Hype rtension Take 5 mg by mouth daily Indications: Acute Heart Attack, High Blood Pressure. Active Active Problems Problem Noted Date Diagnosed Date Asymptomatic microscopic hematuria 08/16/2024 C6 cervical fracture 08/16/2024 Dyslipidemia 08/16/2024 Multiple rib fractures involving first rib 08/16 Sacroiliitis 08/16/2024 Retention of urine 08/16/2024 Cervical myelopathy 08/16/2024 Sternal fracture 08/16/2024 Urge and stress incontinence 08/16/2024 Weakness generalized 07/01/2024 Critical polytrauma 06/15/2024 Anticoagulant long-term use 05/24/2024 Chronic low back pain 05/24/2024 Chronic renal insufficiency 05/24/2024 Closed dislocation of sixth cervical vertebra Elevated liver function tests 05/24/2024 Glaucoma 05/24/2024 Osteoarthrosis 05/24/2024 Spinal stenosis of cervical region 05/24/2024 Traumatic dislocation of fac et joint between sixth and seventh cervical vertebrae 05/24/2024 Chronic systolic congestive heart failure 2023 History of kidney stones 04/13/2024 Left shoulder pain 04/13/2024 Lumbosacral spondylosis 04/13/2024 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 08/26/2023 GERD (gastroesophageal reflux disease) Personal history of COVID-19 08/26/2023 Coronary artery disease of n ative artery of [place] heart with stable angina pectoris 03/10/2023 Arthritis, lumbar spine 03/10/2023 Peripheral neuropathy 03/10/2023 Pseudogout of right knee 03/10/2023 Obstructive sleep apnea syndrome 06/25/2020 Essential hypertension 12/28/2019 Age related osteoporosis 05/18/2019 Anxiety disorder 04/24/2019 Immunizations Immunization Administration Dates Next Due Influenza, injectable, adjuv anted, quadrivalent, preservative free (DRV=486) 05/03/2023,06/19/2020 Influenza, injectable, high dose seasonal, trivalent, preservative free (EXO=313) 06/30/2024,06/22/2019,07/12/2018,06/06 Influenza, injectable, high- dose seasonal, quadrivalent, preservative free (THW=071) 05/21/2022,05/21/2021 Influenza, unspecified formu lation (CVX=88) 05/09/2022,06/02/2020,04/09/2019,04/09 Pneumococcal conjugate 13 va lent (PCV13) (FJM=166) 06/06/2015 Pneumococcal polysaccharide 23 Valent (PPSV23) (CVX=33) 05/09/2018,06/03/2016 Zoster Recombinant (RZV,Fink gles) (FYM=412) 07/17/2020,05/03/2020 Family History Medical History Relation Name Comments Diabetes Mellitus Maternal Grandmother Arthritis Mother Relation Name Status Comments Maternal Grandmother Mother Social History Tobacco Use Types Packs/Day Years Used Date Smoking Tobacco: Never Smokeless Tobacco: Never Tobacco Cessation:Counseling Given: Not Answered [facility] Utilities Answer Date Recorded In the past 12 months has th e electric, gas, oil, or water company threatened to shut off services in your home? No 07/10/2024 Humiliation, Afraid, Rape, and Kick questionnair e Answer Date Recorded Within the last year, have y ou been afraid of your partner or ex-partner? No 07/10/2024 Within the last year, have y ou been humiliated or emotionally abused in other ways by your partner or ex-partner? No Within the last year, have y ou been kicked, hit, slapped, or otherwise physically hurt by your partner or ex-partner? No 07/10/2024 Within the last year, have y ou been raped or forced to have any kind of sexual activity by your partner or ex-partner? No 07/10/2024 Social Connection and Isolat ion Panel [NHANES] Answer Date Recorded In a typical week, how many times do you talk on the phone with family, friends, or neighbors? More than three times a week 07/10/2024 How often do you get togethe r with friends or relatives? More than three times a week 07/10/2024 How often do you attend chur ch or christianity services? More than 4 times per year 07/10/2024 Do you belong to any clubs o r organizations such as zoroastrianism groups, unions, fraternal or athletic groups, or school groups? Yes 07/10/2024 How often do you attend meet ings of the clubs or organizations you belong to? More than 4 times per year 07/10/2024 Are you , , di vorced, , never , or living with a partner? 07/10/2024 Overall Financial Resource Strain (CARDIA) Answe r Date Recorded How hard is it for you to pa y for the very basics like food, housing, medical care, and heating? Not very hard 07/10/2024 PHQ-2 Answer Date Recorded PHQ-2 Total 0 07/05/2024 [facility] Occup[facility] ional [facility] - Occupational Stress Questionnaire Answer Date Recorded Do you feel stress - tense, restless, nervous, or anxious, or unable to sleep at night because your mind is troubled all the time - these days? Not at all 07/10/2024 Exercise Vital Sign Answer Date Recorde d On average, how many days pe r week do you engage in moderate to strenuous exercise (like a brisk walk)? Patient declined On average, how many minutes do you engage in exercise at this level? 20 min 07/10/2024 Hunger Vital Sign Answer Date Recorded Within the past 12 months, y ou worried that your food would run out before you got the money to buy more. Never true 07/10/20 24 Within the past 12 months, t he food you bought just didn't last and you didn't have money to get more. Never true 07/10/2024 PRAPARE - Transportation Answer Date Re corded In the past 12 months, has l ack of transportation kept you from medical appointments or from getting medications? No 09/2023 In the past 12 months, has l ack of transportation kept you from meetings, work, or from getting things needed for daily living? No 07/10/2024 Housing Stability Vital Sign Answer Rodo e Recorded In the last 12 months, was t here a time when you were not able to pay the mortgage or rent on time? No 07/10/2024 In the past 12 months, how m any times have you moved where you were living? 0 07/10/2024 At any time in the past 12 m [facility], were you homeless or living in a alf (including now)? No 07/10/2024 Utilities - Historical Answer Date Devon rded In the past 12 months has th e electric, gas, oil, or water company threatened to shut off services in your home? No 07/10/2024 Education Answer Date Recorded What is the highest level of school you have completed or the highest degree you have received? Bachelor's degree (e.g., BA, AB, BS) 07/10/2024 Comments Unknown Sex and Gender Information Value Date Recorded Sex Assigned at Not on file Legal Sex Female 2:27 PM EDT Gender Identity Not on file Sexual Orientation Not on file Last Filed Vital Signs Vital Sign Reading Time Taken Comments Blood Pressure 121/78 07/05/2024 2:00 AM EST Pulse 83 07/05/2024 8:02 AM EST Temperature 36.8 C (98.2 F) 07/05/2024 2:00 AM EST Respiratory Rate 16 07/05/2024 8:02 AM EST Oxygen Saturation 97% 07/05/2024 8:02 AM EST Inhaled Oxygen Concentration - - Weight 57.6 kg (127 lb) 06/18/2024 11:00 AM EST Height 154.9 cm (5' 1 ) 06/15/2024 8:30 PM EST Body Mass Index 24 06/15/2024 8:30 PM EST Plan of Treatment Health Maintenance Due Date Last Done Comments Ejection Fraction 1940 Tdap Booster 1958 Hepatitis A (HAV) Vaccine (optional start 19+ years) 10/17/1959 Hepatitis B (HBV) Vaccine (optional start 60+ years) 2000 RSV vaccine (adult) (1 - 1-d ose 75+ series) 10/17/2015 Annual Wellness Visit (G0439) 03/09/2024 03/10/2023 COVID-19 Vaccine ( - 2024-2 6 season) 2025 08/11/2021, 10/03/2020, 09/12/2020 Influenza Vaccine (#1) 2025 , 05/03/2023, 05/21/2022, Additional history exists Basic Metabolic Panel 07/04/2025 07/04/2024 , 06/28/2024, 06/23/2024, Additional history exists Pneumococcal Vaccine(s) (50+ yrs) Completed 05/09/2018, 06/03/2016, 06/06/2015 Shingles (RZV) Vaccine Completed 07/17/2020, 2019 Bone Densitometry Completed 04/24/2022, 04/11/2019 Pap Smear Discontinued Procedures Procedure Name Priority Date/Time Associated Diagnosis Comments BASIC METABOLIC PANEL Routine 07/04/2024 6:13 AM EST from Last 3 Months or Most Recently Relevant to Health Maintenance Results * (ABNORMAL) BASIC METABOLIC PANEL (07/04/2024 6:13 AM EST) Glucose 85 74 - 109 mg/dL 07/04/2024 9:51 AM EST [facility] Sodium 135(L) 136 - 145 mmol/L 07/04/2024 9:51 AM EST [facility] Potassium 4.4 3.5 - 5.0 mmol/L 07/04/2024 9:51 AM EST [facility] Carbon Dioxide 25 21 - 31 mmol/L 07/04/2024 9:51 AM EST [facility] Chloride 99 98 - 107 mmol/L 07/04/2024 9:51 AM EST [facility] Blood Urea Nitrogen 12 7 - 25 mg/dL 07/04/2024 9:51 AM EST [facility] Creatinine 0.44(L) 0.60 - 1.20 mg/dL 07/04/2024 9:51 AM EST [facility] Calcium 8.9 8.6 - 10.3 mg/dL 07/04/2024 9:51 AM EST [facility] Anion Gap 15 10 - 20 07/04/2024 9:51 AM EST [facility] Estimated GFR (CKD-EPI) 96 >=60 mL/min/1. 73sqm 07/04/2024 9:51 AM EST [facility] Comment: 2020 CKD EPI Equation using Creatinine without Race Comment: Estimated glomerular filtration rate (eGFR) is calculated without a race coefficient. Values should be interpreted in the context of the patient's full clinical presentation. Reference: 1. Loi C, Aurelia M, Rei MOHAMUD, et al.. A Unifying Approach for GFR Estimation: Recommendations of the NKF-ASN Task Force on Reassessing the Inclusion of Race in Diagnosing Kidney Disease. [place] Journal of Kidney Diseases 2022;79(2):268- 88.e1. 2. N Engl J Med 2021 Vol. 385 Issue 19 Pages 5565-4560 Blood BLOOD SPECIMEN / Unknown Venipuncture / Unknown 07/04/2024 6:13 AM EST 07/04/2024 9:24 AM EST Kennedy Watters MD [address] [facility] Final Result [facility] [address] [place] [address] from Last 3 Months or Most Recently Relevant to Health Maintenance Insurance [employer] MEDICARE PFFS Advance Directives * Full Code (Latest Code Status on File) Date Activated Date Inactivated Comments 06/15/2024 7:08 PM 07/05/2024 3:13 PM Question Answer Comments Documentation of decision pr ocess for this code status: Discussed with patient or surrogate. This is the code status chosen by the patient/surrogate. Care Teams Vegetable Farmworker Relationship Specialty Start Date End Date Christiano Taylor DO [facility] [address] [place] [address] PCP - General 07/03/24 Bella Wood MD [address] [place] [id number] Physician Infectious Diseases 07/15/24 Bhavana Carroll MD [address] [place] [phone] Physician Physical Medicine & Rehab/PM&R 09/09/24
--- OUTSIDE RECORDS SUMMARY | 2025-04-12 15:35 | XMS_ITS | Encounter Summary ---
Author Organization [facility] Address [address] [place] [address] Care Team Providers Care Grief Counsellor Name Role Phone Christiano Taylor DO Unavailable [phone] Christiano Taylor DO Primary Care Provider + [phone] Encounter Details Date Type Department Care Team (Late st Contact Info) Description 05/06/2023 Orders Only [facility] [address] [facility] [address] [place] [phone] A, Unknown Practice [address] [place], [place] [phone] Social History Tobacco Use Types Packs/Day Years Used Date Smoking Tobacco: Never Passive Smoke Exposure: Never Alcohol Use Standard Drinks/Week Comments Never 0 (1 standard drink = 0.6 oz pur e alcohol) PHQ-2 Answer Date Recorded Patient Health Questionnaire-2 Score 0 03/11/2023 Comments Unknown Sex and Gender Information Value Date Recorded Sex Assigned at Not on file Legal Sex Female 6:57 PM EDT Gender Identity Not on file Sexual Orientation Not on file documented as of this encounter Plan of Treatment Upcoming Encounters Date Type Department Care Team (Late st Contact Info) Description 06/05/2025 1:45 PM EDT Office Visit [facility] [address] [facility] [address] [place] [phone] Wally Gonzales MD [address] [facility] [address] [place] [address] 06/28/2025 11:20 AM EST Procedure Visit [facility] [address] [place] [phone] Tawanda Girard DPM [address] [facility] [address] [place] [address] documented as of this encounter Procedures Procedure Name Priority Date/Time Associated Diagnosis Comments XR ABDOMEN 1 VIEW Routine 05/06/2023 1:28 PM EDT documented in this encounter Results * XR abdomen 1 view (05/06/2023 1:28 PM EDT) Anatomical Region Laterality Modality Abdomen Radiographic Kate ging us Unknown Practice A IMG XR PROCEDURES Final Resul t documented in this encounter Visit Diagnoses Not on filedocumented in this encounter Care Teams Grief Counsellor Relationship Specialty Start Date End Date Christiano Taylor DO [address] [facility] [address] [place] [address] PCP - [employer] 08/09/20 Christiano Taylor DO [address] [facility] [address] [place] [address] PCP - General Family Medicine 03/09/23 documented as of this encounter
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
--- OUTSIDE RECORDS SUMMARY | 2025-04-12 15:35 | XMS_ITS | Encounter Summary ---
Author Organization [facility] Address [address] [place] [address] Phone Care Team Providers Care Insole Rasper Name Role Phone Christiano Taylor DO Primary Care Provider [phone] Encounter Details Date Type Department Care Team (Late st Contact Info) Description 01/09/2023 Orders Only [facility] [address] [place] [address] Conversion, Onbase Social History Tobacco Use Types Packs/Day Years [...] Description 04/22/2026 12:30 PM EDT Office Visit [facility] 703 [facility] [address] [place] [address] Colette Trevizo MD [address] [facility] [address] [place], [place] [phone] Scheduled Orders Name Type Priority Associated Diagnoses Orde r Schedule OUTSIDE LAB SCAN Lab Ordered: 01/09/2023 documented as of this encounter Visit Diagnoses Not on filedocumented in this encounter Additional Health Concerns Infection Onset Date Last Indicated Resolved Time C. difficile Rule-Out 05/24/2024 05/24/20242023 9:26 AM EDT documented as of this encounter Care Teams Insole Rasper Relationship Specialty Start Date End Date Christiano Taylor DO PCP - General 11/12/22 documented as of this encounter
--- OUTSIDE RECORDS SUMMARY | 2025-04-12 15:35 | XMS_ITS | Encounter Summary ---
Author Organization [facility] Address [address] [place] [address] Care Team Providers Care Underwriting Internship Name Role Phone Christiano Taylor DO Unavailable [phone] NehalmarysolChristiano christianson Sarah DO Primary Care Provider + [phone] Encounter Details Date Type Department Care Team (Late Contact Info) Description 05/20/2023 Orders Only [facility] [place] [facility] [address] [facility] [address] [place] [address] [place] [address] A, Unknown Practice [address] [place], [place] [phone] Social History Tobacco Use Types Packs/Day Years [...] EDT Office Visit [facility] 703 [facility] 150 [place] [phone] Wally Gonzales MD 703 [facility] 150 [place] [address] 06/28/2025 11:20 AM EST Procedure Visit [facility] [address] [place] [address] [place] [address] Tawanda Girard, DPRoopa 3006 [facility] 5 [place] [address] documented as of this encounter Procedures Procedure Name Priority Date/Time Associated Diagnosis Comments SCANNED LABS Routine 05/18/2023 2:31 PM EDT documented in this encounter Results * SCANNED LABS (05/18/2023 2:31 PM EDT) us Unknown Practice A LAB CHG PERFORMABLES Final Re sult documented in this encounter Visit Diagnoses Not on filedocumented in this encounter Care Teams Underwriting Internship Relationship Specialty Start Date End Date Christiano Taylor DO [address] [facility] 230 [place] [address] PCP - [employer] 08/09/20 Christiano Taylor DO [address] [facility] 230 [place] [address] PCP - General Family Medicine 03/09/23 documented as of this encounter
--- OUTSIDE RECORDS SUMMARY | 2025-04-12 15:35 | XMS_ITS | Encounter Summary ---
Author Organization [facility] Address [address] [facility], [address] [place] [address] Care Team Providers Care Raw Stock Machine Loader Name Role Phone Rubén Alfred MD Primary Care Provider + [phone] Reason for Visit * Reason Comments Medication Refill Encounter Details Date Type Department Care Team ([facility] Contact Info) Description 03/30/2020 [facility] [address], [address] [place] [address] Rosalee Jaimes MD [address] [place] [address] [address] [place], [place] [id number] Medication Refill Social History Tobacco Use Types Packs/Day Years [...] as of this encounter Plan of Treatment Not on file documented as of this encounter Visit Diagnoses Diagnosis Lumbosacral spondylosis without myelopathy documented in this encounter Additional Health Concerns Assessment Noted Time A Body Mass Index follow-up plan has been documented for the patient 03/04/2020 1:39 PM EDT documented as of this encounter Care Teams Raw Stock Machine Loader Relationship Specialty Start Date End Date Rubén Alfred MD [address] [place] [address] PCP - General Family Medicine 09/22/18 documented as of this encounter
--- OUTSIDE RECORDS SUMMARY | 2025-04-12 15:35 | XMS_ITS | Encounter Summary ---
Author Organization [facility] Address [address] [place] [address] Care Team Providers Care Quality Improvement Engineer Name Role Phone Christiano Taylor DO Unavailable [phone] Christiano Taylor DO Primary Care Provider [phone] Encounter Details Date Type Department Care Team [...] EDT Office Visit [facility] [address] [facility] [address] [address] [place] [address] Wally Gonzales MD 703 [facility] [place] [address] [place] [address] 06/28/2025 11:20 AM EST Procedure Visit [facility] [address] [facility] [address] [address] [place] [address] Tawanda Girard DPM [address] [facility] 5 [place] [address] documented as of this encounter Procedures Procedure Name Priority Date/Time Associated Diagnosis Comments FL LESS THAN 1 HOUR INTRAOPERATIVE 05/24/2024 7:11 AM EDT documented in this encounter Results * FL less than 1 hour intraoperative (05/24/2024 7:11 AM EDT) Anatomical Region Laterality Modality Radiographic Kate ging 05/24/2024 7:11 AM EDT Narrative 05/24/2024 1:38 PM EDT These images are not reportable by radiology and will not be interpreted by Radiologists. Procedure Note Radiology, Radiologist, - 05/24/2024 These images are not reportable by radiology and will not be interpretedby Radiologists. Generic External Data Provider IMG FLUOROSCOPY P ROCEDURES Final Result documented in this encounter Visit Diagnoses Not on filedocumented in this encounter Care Teams Quality Improvement Engineer Relationship Specialty Start Date End Date Christiano Taylor DO [address] [place] [address] [place] [address] PCP - [employer] 08/09/20 Christiano Taylor, [address] [place] [address] [place] [address] PCP - General Family Medicine 03/09/23 documented as of this encounter
--- OUTSIDE RECORDS SUMMARY | 2025-04-12 15:35 | XMS_ITS | Encounter Summary ---
Author Organization [facility] Address [address] [place] [address] Phone Care Team Providers Care Federal Mediation Commissioner Name Role Phone Christiano Taylor DO Primary Care Provider [phone] Encounter Details Date Type Department Care Team (Latest Contact Info) Description 04/12/2025 Travel Social History Tobacco Use Types Packs/Day Years [...] any time in the past [address] [facility], were you homeless or living in a alf (including now)? No 06/12/2024 Comments Unknown Sex and Gender Information Value Date Recorded Sex Assigned at Female 05/24/2024 4:58 AM EDT Legal Sex Female 10:09 AM EST Gender Identity Female 05/24/2024 4:58 AM EDT Sexual Orientation Not on file documented as of this encounter Functional Status [...] Description 04/22/2026 12:30 PM EDT Office Visit [facility] 703 [facility] 250 [place] [address] Colette Trevizo MD 917 [facility] 130 [place] [address] documented as of this encounter Visit Diagnoses Not on filedocumented in this encounter Additional Health Concerns Assessment Noted Time A fall risk assessment has been complete d for the patient 04/12/2025 2:02 PM EDT documented as of this encounter Care Teams Federal Mediation Commissioner Relationship Specialty Start Date End Date Christiano Taylor DO PCP - General 11/12/22 documented as of this encounter
--- OUTSIDE RECORDS SUMMARY | 2025-04-12 15:35 | XMS_ITS | Encounter Summary ---
Author Organization [facility] Address [address] [place] [address] Care Team Providers Care Rn Psych Name Role Phone Christiano Taylor DO Unavailable [phone] NehalmarysolChristiano christianson Sarah DO Primary Care Provider + [phone] Encounter Details Date Type Department Care Team (Late st Contact Info) Description 05/19/2023 Orders Only [facility] [address] [facility] [address] [place] [address] [place] [address] A, Unknown Practice [address] [place], [place] [id number] Social History Tobacco Use Types Packs/Day Years [...] EDT Office Visit [facility] 703 [facility] 150 [place] [phone] Wally Gonzales MD 703 [facility] 150 [place] [address] 06/28/2025 11:20 AM EST Procedure Visit [facility] [address] [place] [address] [place] [address] Tawanda Girard, DPRoopa 3006 [facility] 5 [place] [address] documented as of this encounter Procedures Procedure Name Priority Date/Time Associated Diagnosis Comments SCANNED LABS Routine 05/18/2023 7:52 AM EDT documented in this encounter Results * SCANNED LABS (05/18/2023 7:52 AM EDT) us Unknown Practice A LAB CHG PERFORMABLES Final Re sult documented in this encounter Visit Diagnoses Not on filedocumented in this encounter Care Teams Rn Psych Relationship Specialty Start Date End Date Christiano Taylor DO [address] [facility] 230 [place] [address] PCP - [employer] 08/09/20 Christiano Taylor DO [address] [facility] 230 [place] [address] PCP - General Family Medicine 03/09/23 documented as of this encounter
--- OUTSIDE RECORDS SUMMARY | 2025-04-12 15:35 | XMS_ITS | Encounter Summary ---
Author Organization [facility] Address [address] [place] [address] Care Team Providers Care General Magistrate Name Role Phone Christiano Taylor Sarah DO Unavailable [phone] Christiano Taylor DO Primary Care Provider + [phone] Encounter Details Date Type Department Care Team (Late Contact Info) Description 02/17/2024 Abstract [facility] [address] [facility] [address] [place] [address] Claudia Christiano Smith, DO [address] [facility] [address] [place] [address] Social History Tobacco Use Types [...] EDT Office Visit [facility] 703 [facility] 150 [place] [address] Wally Gonzales MD 703 [facility] 150 [place] [address] 06/28/2025 11:20 AM EST Procedure Visit [facility] [address] [place] [address] Tawanda Girard, DPRoopa 3006 [facility] 5 [place] [address] documented as of this encounter Visit Diagnoses Not on filedocumented in this encounter Care Teams General Magistrate Relationship Specialty Start Date End Date Christiano Taylor, DO [address] [place] [address] [place] [address] PCP - [employer]et[employer] 08/09/20 Christiano Taylor, DO [address] [place] [address] [place] [address] PCP - General Family Medicine 03/09/23 documented as of this encounter
--- OUTSIDE RECORDS SUMMARY | 2025-04-12 15:35 | XMS_ITS | Encounter Summary ---
Author Organization [facility] Address [address] [place] [address] Care Team Providers Care Extrusion Press Operator Name Role Phone Christiano Taylor DO Unavailable [phone] Christiano Taylor DO Primary Care Provider +- [phone] Encounter Details Date Type Department Care Team (Late st Contact Info) Description 04/24/2024 Abstract [facility] [address] [facility] [address] 230 [place] [address] Christiano Taylor, DO [address] [facility] [address] [place] [address] Social History Tobacco Use Types Packs/Day Years [...] EDT Office Visit [facility] 703 [facility] 150 [place] [address] Wally Gonzales MD 703 [facility] 150 [place] [address] 06/28/2025 11:20 AM EST Procedure Visit [facility] 112 [facility] 120 [place] [address] Tawanda Girard DPM 3006 [facility] 5 [place] [address] documented as of this encounter Visit Diagnoses Not on filedocumented in this encounter Care Teams Extrusion Press Operator Relationship Specialty Start Date End Date Christiano Taylor DO [address] [facility] 230 [place] [address] PCP - [employer] 08/09/20 Christiano Taylor DO [address] [facility] 230 [place] [address] PCP - General Family Medicine 03/09/23 documented as of this encounter
--- OUTSIDE RECORDS SUMMARY | 2025-04-12 15:35 | XMS_ITS | Encounter Summary ---
Author Organization [facility] Address [address] [place] [address] Care Team Providers Care Appraiser Personal Property Name Role Phone Christiano Taylor DO Unavailable [phone] Christiano Taylor DO Primary Care Provider +- [phone] Encounter Details Date Type Department Care Team (Late st Contact Info) Description 04/25/2024 Abstract [facility] [address] [facility] [address] [place] [address] Christiano Taylor, DO [address] [facility] [place] [address] [place] [address] Social History Tobacco Use Types Packs/Day Years [...] EDT Office Visit [facility] 703 [facility] 150 [place] [address] Wally Gonzales MD 703 [facility] 150 [place] [address] 06/28/2025 11:20 AM EST Procedure Visit [facility] 112 [facility] 120 [place] [address] Tawanda Girard DPM 3006 [facility] 5 [place] [address] documented as of this encounter Visit Diagnoses Not on filedocumented in this encounter Care Teams Appraiser Personal Property Relationship Specialty Start Date End Date Christiano Taylor DO [address] [facility] 230 [place] [address] PCP - [employer]et[employer] 08/09/20 Christiano Taylor DO [address] [facility] 230 [place] [address] PCP - General Family Medicine 03/09/23 documented as of this encounter
--- OUTSIDE RECORDS SUMMARY | 2025-04-12 15:35 | XMS_ITS | Encounter Summary ---
Author Organization [facility] Address [address] [place] [address] Care Team Providers Care Residential Real Estate Agent Name Role Phone Christiano Taylor DO Unavailable [phone] Christiano Taylor DO Primary Care Provider +- [phone] Encounter Details Date Type Department Care Team (Late st Contact Info) Description 05/09/2024 Abstract [facility] [address] [facility] [address] [address] [place] [address] Christiano Taylor, DO [address] [facility] [address] [address] [place] [address] Social History Tobacco Use Types Packs/Day Years [...] Office Visit [facility] 703 [facility] 150 [place] [address] Wally Gonzales MD 703 [facility] 150 [place] [address] 06/28/2025 11:20 AM EST Procedure Visit [facility] 112 [facility] 120 [place] [address] Tawanda Giarrd DPM 3006 [facility] 5 [place] [address] documented as of this encounter Visit Diagnoses Not on filedocumented in this encounter Care Teams Residential Real Estate Agent Relationship Specialty Start Date End Date Christiano Taylor DO [address] [facility] 230 [place] [address] PCP - [employer] 08/09/20 Christiano Taylor DO [address] [facility] 230 [place] [address] PCP - General Family Medicine 03/09/23 documented as of this encounter
--- OUTSIDE RECORDS SUMMARY | 2025-04-12 15:35 | XMS_ITS | Encounter Summary ---
Author Organization [facility] Address [address] [place] [address] Care Team Providers Care Global Implementation Manager Name Role Phone Christiano Taylor DO Unavailable [phone] Christiano Taylor DO Primary Care Provider + [phone] Encounter Details Date Type Department Care Team (Late st Contact Info) Description 03/12/2023 Orders Only [facility] [address] [facility] [place] 230 [place] [address] A, Unknown Practice [address] [place], [place] [address] Social History Tobacco Use Types Packs/Day Years [...] EDT Office Visit [facility] 703 [facility] 150 [place] [address] Wally Gonzales MD 7[address] [facility] 150 [place] [address] 06/28/2025 11:20 AM EST Procedure Visit [facility] [address] [place] [address] [place] [address] Tawanda Girard DPM 3006 [facility] 5 [place] [address] documented as of this encounter Procedures Procedure Name Priority Date/Time Associated Diagnosis Comments SCANNED LABS Routine 03/12/2023 2:19 PM EDT SCANNED LABS Routine 03/12/2023 12:19 PM EDT documented in this encounter Results * SCANNED LABS (03/12/2023 2:19 PM EDT) us Unknown Practice A LAB CHG PERFORMABLES Final Re sult * SCANNED LABS (03/12/2023 12:19 PM EDT) us Unknown Practice A LAB CHG PERFORMABLES Final Re sult documented in this encounter Visit Diagnoses Not on filedocumented in this encounter Care Teams Global Implementation Manager Relationship Specialty Start Date End Date Christiano Taylor DO [address] [facility] 230 [place] [address] PCP - [employer] 08/09/20 Christiano Taylor DO [address] [facility] 230 [place] [address] PCP - General Family Medicine 03/09/23 documented as of this encounter
--- OUTSIDE RECORDS SUMMARY | 2025-04-12 15:35 | XMS_ITS | Encounter Summary ---
Author Organization [facility] Address [address] [place] [address] Care Team Providers Care Coal Picker Name Role Phone Christiano Taylor DO Unavailable [phone] Christiano Taylor DO Primary Care Provider +- [phone] Encounter Details Date Type Department Care Team (Late st Contact Info) Description 03/14/2025 Abstract [facility] [address] [facility] [place] 230 [place] [address] Christiano Taylor, DO [address] [facility] [place] [address] [place] [address] Social History Tobacco Use Types [...] EDT Office Visit [facility] 703 [facility] 150 [place] [address] Wally Gonzales MD 703 [facility] 150 [place] [address] 06/28/2025 11:20 AM EST Procedure Visit [facility] 112 [facility] 120 [place] [address] Tawanda Girard DPM 3006 [facility] 5 [place] [address] documented as of this encounter Visit Diagnoses Not on filedocumented in this encounter Care Teams Coal Picker Relationship Specialty Start Date End Date Christiano Taylor DO [address] [facility] 230 [place] [address] PCP - [employer]et[employer] 08/09/20 Christiano Taylor DO [address] [facility] 230 [place] [address] PCP - General Family Medicine 03/09/23 documented as of this encounter
--- OUTSIDE RECORDS SUMMARY | 2025-04-12 15:35 | XMS_ITS | Encounter Summary ---
Author Organization [facility] Address [address] [place] [address] Care Team Providers Care Cylinder Tester Name Role Phone Christiano Taylor DO Unavailable [phone] Christiano Taylor DO Primary Care Provider [phone] Encounter Details Date Type Department Care Team [...] Office Visit [facility] [address] [facility] [place] 150 [place] [address] Wally Gonzales MD 703 [facility] 150 [place] [address] 06/28/2025 11:20 AM EST Procedure Visit [facility] [address] [facility] 120 [place] [address] Tawanda Girard DPM 3006 [facility] 5 [place] [address] documented as of this encounter Procedures Procedure Name Priority Date/Time Associated Diagnosis Comments UH ARTERIAL FULL PANEL Routine 3:21 PM EDT UH COAGULATION SCREEN Routine 05/24/2024 3:18 PM EDT ALL RENAL FUNCTION PANEL Routine 05/24/2024 3:18 PM EDT ALL CBC WITH AUTO DIFF Routine 3:18 PM EDT FL LESS THAN 1 HOUR INTRAOPERATIVE 05/24/2024 8:53 AM EDT documented in this encounter Results * (ABNORMAL) UH ARTERIAL FULL PANEL (05/24/2024 3:21 PM EDT) UH PH 7.43(H) 7.38 - 7.42 pH UH UH PCO2 33(L) 38 - 42 mm Hg UH UH PO2 177(H) 85 - 95 mm Hg UH UH SO2 100 94 - 100 % UH UH OXY HGB 97.3 94.0 - 98.0 % UH UH HCT,CALCULATED 52.0(H) 36.0 - 46.0 % UH UH SODIUM 135(L) 136 - 145 mmol/L UH UH POTASSIUM 3.9 3.5 - 5.3 mmol/L UH UH CHLORIDE 105 98 - 107 mmol/L UH UH CALCIUM, IONIZED 1.31 1.10 - 1.33 mmol/L UH UH GLUCOSE 165(H) 74 - 99 mg/dL UH UH LACTATE 2.3(H) 0.4 - 2.0 mmol/L UH UH BASE EXCESS-BLOOD -1.5 -2.0 - 3.0 mmol/L UH UH BICARB, CALCULATED 21.9(L) 22.0 - 26.0 mmol/L UH UH HGB 17.3(H) 12.0 - 16.0 g/dL UH UH ANION GAP 12 10 - 25 mmo/L UH UH PATIENT TEMPERATURE 37.0 degrees Celsius UH UH FIO2 100 % UH Blood 05/24/2024 3:21 PM EDT 05/24/2024 3:22 PM EDT Narrative [facility]INIS[facility] - 05/24/2024 4:06 PM EDT Original Ordering Provider: NORA DAVALOS us Generic External Data Provider CRISTOFER byrd Result Performing Organization Address City/State/[facility] Co de Phone Number CRISTOFER [phone] [place] [address] * (ABNORMAL) ALL RENAL FUNCTION PANEL (05/24/2024 3:18 PM EDT) GLUCOSE 177(H) 74 - 99 mg/dL UH UH SODIUM 140 136 - 145 mmol/L UH UH POTASSIUM 4.1 3.5 - 5.3 mmol/L UH UH CHLORIDE 105 98 - 107 mmol/L UH UH BICARBONATE 25 21 - 32 mmol/L UH UH ANION GAP 14 10 - 20 mmol/L UH UH UREA NITROGEN 16 6 - 23 mg/dL UH UH CREATININE 0.73 0.50 - 1.05 mg/dL UH GFRAT 82 >60 mL/min/1. 73m*2 UH Comment: Calculations of estimated GFR are performed using the 2020 CKD-EPI Study Refit equation without the race variable for the IDMS-Traceable creatinine methods. https://jasn.asnjournals.org/content///ASN.6013246341 UH CALCIUM 10.4 8.6 - 10.6 mg/dL UH UH PHOSPHORUS 4.0 2.5 - 4.9 mg/dL UH Comment:The performance michael acteristics of phosphorus testing in heparinized plasma have been validated by the individual laboratory site where testing is performed. Testing on heparinized plasma is not approved by the FDA; however, such approval is not necessary. UH ALBUMIN 3.9 3.4 - 5.0 g/dL Blood 05/24/2024 3:18 PM EDT 05/24/2024 3:49 PM EDT Narrative CLINISYNC - 05/24/2024 4:41 PM EDT Original Ordering Provider: NORA DAVALOS Generic External Data Provider CRISTOFER Abhay monreall Result Performing Organization Address [facility] Co de Phone Number CRISTOFER [address] [place] [address] * (ABNORMAL) ALL CBC WITH AUTO DIFF (05/24/2024 3:18 PM EDT) Pathologist [facility] WBC 10.6 4.4 - 11.3 x10*3/uL [facility] NUCLEATED RBC 0.0 0.0 - 0.0 /100 WBCs [facility] RBC 4.21 4.00 - 5.20 x10*6/uL [facility] HGB 12.4 12.0 - 16.0 g/dL [facility] HCT 36.4 36.0 - 46.0 % [facility] MCV 87 80 - 100 fL MCH 29.5 26.0 - 34.0 pg [facility] MCHC 34.1 32.0 - 36.0 g/dL [facility] RDW-CV 13.3 11.5 - 14.5 % [facility] PLT 117(L) 150 - 450 x10*3/uL Blood 05/24/2024 3:18 PM EDT 05/24/2024 3:49 PM EDT Narrative CLINISYNC - 05/24/2024 4:08 PM EDT Original Ordering Provider: NORA DAVALOS Generic External Data Provider CRISTOFER Abhay inal Result Performing Organization Address [facility] de Phone Number CRISTOFER [phone] [place] [address] * (ABNORMAL) COAGULATION SCREEN (05/24/2024 3:18 PM EDT) PROTHROMBIN TIME 14.2(H) 9.8 - 12.8 seconds [facility] PT, INR 1.3(H) 0.9 - 1.1 NA [facility] APTT 27 27 - 38 seconds Blood 05/24/2024 3:18 PM EDT 05/24/2024 3:49 PM EDT Narrative CLINISYNC - 05/24/2024 4:07 PM EDT The APTT is no longer used for monitoring Unfractionated Heparin Therapy. For monitoring Heparin Therapy, use the Heparin Assay. Original Ordering Provider: NORA DAVALOS Generic External Data Provider CRISTOFER F inal Result [facility] [address] [place] [address] * FL less than 1 hour intraoperative (05/24/2024 8:53 AM EDT) Anatomical Region Laterality Modality Radiographic Kate ging 05/24/2024 8:53 AM EDT Narrative 05/24/2024 2:09 PM EDT These images are not reportable by radiology and will not be interpreted by Radiologists. Procedure Note Radiology, Radiologist, MD - 05/24/2024 These images are not reportable by radiology and will not be interpretedby Radiologists. Generic External Data Provider IMG FLUOROSCOPY P ROCEDURES Final Result documented in this encounter Visit Diagnoses Not on filedocumented in this encounter Care Teams Cylinder Tester Relationship Specialty Start Date End Date Christiano Taylor, DO [address] [place] [address] [place] [address] PCP - [employer]et[employer] 08/09/20 Christiano Taylor, DO [address] [place] [address] [place] [address] PCP - General Family Medicine 03/09/23 documented as of this encounter
--- OUTSIDE RECORDS SUMMARY | 2025-04-12 15:35 | XMS_ITS | Encounter Summary ---
Author Organization [facility] Address [address] [place] [address] Care Team Providers Care Container Maker Name Role Phone Christiano Taylor Sarah DO Unavailable [phone] Christiano Taylor DO Primary Care Provider + [phone] Encounter Details Date Type Department Care Team (Late Contact Info) Description 11/16/2023 Abstract [facility] [address] [facility] [address] [address] [place] [address] Claudia Christiano Smith, DO [address] [facility] [address] [place] [address] Social History Tobacco Use Types [...] EDT Office Visit [facility] 703 [facility] 150 [place] [address] Wally Gonzales MD 703 [facility] 150 [place] [address] 06/28/2025 11:20 AM EST Procedure Visit [facility] [address] [address] [place] [address] Tawanda Girard, DPRoopa 3006 [facility] 5 [place] [address] documented as of this encounter Visit Diagnoses Not on filedocumented in this encounter Care Teams Container Maker Relationship Specialty Start Date End Date Christiano Taylor, DO [address] [place] [address] [place] [address] PCP - [employer]et[employer] 08/09/20 Christiano Taylor, DO [address] [place] [address] [place] [address] PCP - General Family Medicine 03/09/23 documented as of this encounter
--- OUTSIDE RECORDS SUMMARY | 2025-04-12 15:35 | XMS_ITS | Encounter Summary ---
Author Organization [facility] Address [address] [place] [address] Care Team Providers Care Endocrinology Specialist Name Role Phone Christiano Taylor DO Unavailable [phone] Christiano Taylor DO Primary Care Provider [phone] Encounter Details Date Type Department Care Team (Latest Contact Info) Description 04/05/2025 Travel Social History Tobacco Use Types Packs/Day [...] EDT [facility] Visit [facility] 703 [facility] 150 [place] [address] Wally Gonzales MD 703 [facility] 150 [place] [address] 06/28/2025 11:20 AM EST Procedure Visit [facility] [address] [facility] 120 [place] [address] Tawanda Girard, DPM 3006 [facility] 5 [place] [address] documented as of this encounter Visit Diagnoses Not on filedocumented in this encounter Care Teams Endocrinology Specialist Relationship Specialty Start Date End Date Christiano Taylor DO [address] [facility] 230 [place] [address] PCP - [employer]et[employer] 08/09/20 Christiano Taylor DO [address] [facility] 230 [place] [address] PCP - General Family Medicine 03/09/23 documented as of this encounter
--- OUTSIDE RECORDS SUMMARY | 2025-04-12 15:35 | XMS_ITS | Encounter Summary ---
Author Organization [facility] Address [address] [place] [address] Care Team Providers Care Marketing Communications Manager Name Role Phone Christiano Taylor Sarah DO Unavailable [phone] Christiano Taylor DO Primary Care Provider + [phone] Encounter Details Date Type Department Care Team (Late Contact Info) Description 11/16/2023 Abstract [facility] [address] [facility] [address] [address] [place] [address] Claudia Christiano Smith, DO [address] [facility] [address] [place] [address] Social History Tobacco Use Types [...] EDT Office Visit [facility] 703 [facility] 150 [place] [address] Wally Gonzales MD 703 [facility] 150 [place] [address] 06/28/2025 11:20 AM EST Procedure Visit [facility] [address] [address] [place] [address] Tawanda Girard, DPRoopa 3006 [facility] 5 [place] [address] documented as of this encounter Visit Diagnoses Not on filedocumented in this encounter Care Teams Marketing Communications Manager Relationship Specialty Start Date End Date Christiano Taylor, DO [address] [place] [address] [place] [address] PCP - [employer]et[employer] 08/09/20 Christiano Taylor, DO [address] [place] [address] [place] [address] PCP - General Family Medicine 03/09/23 documented as of this encounter
--- OUTSIDE RECORDS SUMMARY | 2025-04-12 15:35 | XMS_ITS | Encounter Summary ---
Author Organization [facility] Address [address] [place] [address] Care Team Providers Care Fabric Cutter Name Role Phone Christiano Taylor DO Unavailable [phone] Christiano Taylor DO Primary Care Provider + [phone] Encounter Details Date Type Department Care Team (Late st Contact Info) Description 03/15/2023 Orders Only [facility] [address] [facility] [address] 230 [place] [address] A, Unknown Practice [address] [place], [place] [address] Social History Tobacco Use Types Packs/Day Years [...] EDT Office Visit [facility] 703 [facility] 150 [place] [address] Wally Gonzales MD 703 [facility] 150 [place] [address] 06/28/2025 11:20 AM EST Procedure Visit [facility] [address] [place] 120 [place] [address] Tawanda Girard DPM 3006 [facility] 5 [place] [address] documented as of this encounter Procedures Procedure Name Priority Date/Time Associated Diagnosis Comments SCANNED LABS Routine 03/12/2023 9:49 AM EDT SCANNED LABS Routine 03/12/2023 9:43 AM EDT documented in this encounter Results * SCANNED LABS (03/12/2023 9:49 AM EDT) us Unknown Practice A LAB CHG PERFORMABLES Final Re sult * SCANNED LABS (03/12/2023 9:43 AM EDT) us Unknown Practice A LAB CHG PERFORMABLES Final Re sult documented in this encounter Visit Diagnoses Not on filedocumented in this encounter Care Teams Fabric Cutter Relationship Specialty Start Date End Date Christiano Taylor DO [address] [facility] 230 [place] [address] PCP - [employer]et[employer] 08/09/20 Christiano Taylor DO [address] [facility] 230 [place] [address] PCP - General Family Medicine 03/09/23 documented as of this encounter
--- OUTSIDE RECORDS SUMMARY | 2025-04-12 15:35 | XMS_ITS | Encounter Summary ---
Author Organization [facility] Address [address] [place] [address] Care Team Providers Care Map Editor Name Role Phone Christiano Taylor Sarah DO Unavailable [phone] Christiano Taylor DO Primary Care Provider + [phone] Encounter Details Date Type Department Care Team (Late Contact Info) Description 08/12/2023 Orders Only [facility] [address] [facility] [address] [place] [address] Christiano Taylor, DO [address] [facility] [address] [place] [address] Social History Tobacco Use Types [...] EDT [facility] 703 [facility] 150 [place] [address] Wally Gonzales MD 703 [facility] 150 [place] [address] 06/28/2025 11:20 AM EST Procedure Visit [facility] [address] [place] [address] [place] [address] Tawanda Girard, DPRoopa 3006 [facility] 5 [place] [address] documented as of this encounter Procedures Procedure Name Priority Date/Time Associated Diagnosis Comments BI MAMMOGRAM DIAGNOSTIC TOMOSYNTHESIS BILATERAL Routine 08/11/2023 2:19 PM EST BI MAMMOGRAM DIAGNOSTIC TOMOSYNTHESIS BILATERAL Routine 08/11/2023 10:37 AM EST documented in this encounter Results * Bilateral diagnostic mammogram with tomosynthesis (08/11/2023 2:19 PM EST) Anatomical Region Laterality Modality Breast Bilateral Mammography Christiano Taylor DO IMG BI PROCEDURES Final Re sult * Bilateral diagnostic mammogram with tomosynthesis (08/11/2023 10:37 AM EST) Anatomical Region Laterality Modality Breast Bilateral Mammography Christiano Taylor DO IMG BI PROCEDURES Final Re sult documented in this encounter Visit Diagnoses Not on filedocumented in this encounter Care Teams Map Editor Relationship Specialty Start Date End Date Christiano Taylor DO [address] [place] [address] [place] [address] PCP - [employer] 08/09/20 Christiano Taylor DO [address] [place] [address] [place] [address] PCP - General Family Medicine 03/09/23 documented as of this encounter
--- OUTSIDE RECORDS SUMMARY | 2025-04-12 15:35 | XMS_ITS | Encounter Summary ---
Author Organization [facility] Address [address] [place] [address] Care Team Providers Care Trainman Name Role Phone Christiano Taylor DO Unavailable [phone] Christiano Taylor DO Primary Care Provider +- [phone] Encounter Details Date Type Department Care Team (Late st Contact Info) Description 03/10/2023 Abstract [facility] [address] [facility] [place] [address] [place] [address] Christiano Taylor, DO [address] [facility] [place] [address] [place] [address] Social History Tobacco Use Types [...] as of this encounter Functional Status * Over the past 2 weeks, how often have you been bothered by any of the following problems? Question Answer Date of Assessment Author Little interest or pleasure in doing things Not at all 03/11/2023 11:00 AM EDT Ying Rivero L PN Feeling down, depressed, or hopeless Not at all 03/11/2023 11:00 AM EDT Ying Rivero L PN Patient Health Questionnaire -2 Score 0 03/11/2023 11:00 AM EDT Ying Rivero L PN documented as of this encounter Plan of Treatment Upcoming Encounters Date Type Department Care Team (Late st Contact Info) Description 06/05/2025 1:45 PM EDT Office Visit [facility] 703 [facility] 150 [place] [address] Wally Gonzales MD 703 [facility] 150 [place] [address] 06/28/2025 11:20 AM EST Procedure [facility] 112 [facility] 120 [place] [address] Tawanda Girard DPM 3006 [facility] 5 [place] [address] documented as of this encounter Visit Diagnoses Not on filedocumented in this encounter Care Teams Trainman Relationship Specialty Start Date End Date Christiano Taylor DO [address] [place] [address] [place] [address] PCP - [employer] 08/09/20 Christiano Taylor DO [address] [place] [address] [place] [address] PCP - General Family Medicine 03/09/23 documented as of this encounter
--- OUTSIDE RECORDS SUMMARY | 2025-04-12 15:35 | XMS_ITS | Encounter Summary ---
Author Organization [facility] Address [address] [place] [address] Phone Care Team Providers Care Machine Applicator Cementer Name Role Phone Christiano Taylor Primary Care Provider [phone] Encounter Details Date Type Department Care Team (Late st Contact Info) Description 07/20/[address] [facility] [address] [place] [id number] Scanning, Generic Provider Social History Tobacco Use [...] Description 04/22/2026 12:30 PM EDT Office Visit [facility] 703 [facility] 250 [place] [address] Colette Trevizo MD 917 [facility] 130 [place], [place] [id number] documented as of this encounter Visit Diagnoses Not on filedocumented in this encounter Additional Health Concerns Infection Onset Date Last Indicated Resolved Time C. difficile Rule-Out 05/24/2024 05/24/20242023 9:26 AM EDT documented as of this encounter Care Teams Machine Applicator Cementer Relationship Specialty Start Date End Date Christiano Taylor DO PCP - General 11/12/22 documented as of this encounter
--- OUTSIDE RECORDS SUMMARY | 2025-04-12 15:35 | XMS_ITS | Encounter Summary ---
Author Organization [facility] Address [address] [place] [address] Care Team Providers Care Refrigeration Insulator Name Role Phone Christiano Taylor DO Unavailable [phone] Christiano Taylor DO Primary Care Provider +- [phone] Encounter Details Date Type Department Care Team (Late st Contact Info) Description 04/12/2025 Abstract [facility] [address] [facility] [place] 230 [place] [address] Christiano Taylor, DO [address] [facility] [place] [address] [place] [address] Social History Tobacco Use Types Packs/Day Years [...] EDT Office Visit [facility] 703 [facility] 150 [place] [address] Wally Gonzales MD 703 [facility] 150 [place] [address] 06/28/2025 11:20 AM EST Procedure Visit [facility] 112 [facility] 120 [place] [address] Tawanda Girard DPM 3006 [facility] 5 [place] [address] documented as of this encounter Visit Diagnoses Not on filedocumented in this encounter Care Teams Refrigeration Insulator Relationship Specialty Start Date End Date Christiano Taylor DO [address] [facility] 230 [place] [address] PCP - [employer] 08/09/20 Christiano Taylor DO [address] [facility] 230 [place] [address] PCP - General Family Medicine 03/09/23 documented as of this encounter
--- OUTSIDE RECORDS SUMMARY | 2025-04-12 15:35 | XMS_ITS | Encounter Summary ---
Author Organization [facility] Address [address] [place] [address] Care Team Providers Care Churn Driller Helper Name Role Phone Christiano Taylor DO Unavailable [phone] Christiano Taylor DO Primary Care Provider +- [phone] Encounter Details Date Type Department Care Team (Late st Contact Info) Description 05/24/2024 [facility] [address] [facility] [place] [address] [place] [address] Christiano Taylor, DO [address] [facility] [place] [address] [place] [address] Social History Tobacco Use Types Packs/Day Years [...] EDT Office Visit [facility] 703 [facility] 150 [place] [address] Wally Gonzales MD 703 [facility] 150 [place] [address] 06/28/2025 11:20 AM EST Procedure Visit [facility] 112 [facility] 120 [place] [address] Tawanda Girard DPM 3006 [facility] 5 [place] [address] documented as of this encounter Visit Diagnoses Not on filedocumented in this encounter Care Teams Churn Driller Helper Relationship Specialty Start Date End Date Christiano Taylor DO [address] [facility] 230 [place] [address] PCP - [employer] 08/09/20 Christiano Taylor DO [address] [facility] 230 [place] [address] PCP - General Family Medicine 03/09/23 documented as of this encounter
--- OUTSIDE RECORDS SUMMARY | 2025-04-12 15:35 | XMS_ITS | Encounter Summary ---
Author Organization [facility] Address [address] [place] [address] Phone Care Team Providers Care Information Technology Program Manager Name Role Phone Christiano Taylor DO Primary Care Provider [phone]- [phone] Encounter Details Date Type Department Care Team (Late st Contact Info) Description 10/26/2022 Orders Only [facility] [address] [place] [address] Conversion, Onbase Social History Tobacco Use Types [...] Office Visit [facility] 703 [facility] 250 [place] [address] Colette Trevizo MD 917 [facility] 130 [place], [place] [phone] Scheduled Orders Name Type Priority Associated Diagnoses Orde r Schedule OUTSIDE LAB SCAN Lab Ordered: 10/26/2022 documented as of this encounter Visit Diagnoses Not on filedocumented in this encounter Additional Health Concerns Infection Onset Date Last Indicated Resolved Time C. difficile Rule-Out 05/24/2024 05/24/20242023 9:26 AM EDT documented as of this encounter Care Teams Information Technology Program Manager Relationship Specialty Start Date End Date Christiano Taylor DO PCP - General 11/12/22 documented as of this encounter
--- OUTSIDE RECORDS SUMMARY | 2025-04-12 15:35 | XMS_ITS | Encounter Summary ---
Author Organization [facility] Address [address] [facility], [address] [place] [address] Care Team Providers Care Carton Forming Machine Adjuster Name Role Phone Rubén Alfred MD Primary Care Provider + [phone] Reason for Visit * Reason Comments Medication Refill Encounter Details Date Type Department Care Team ([facility] Contact Info) Description 04/26/2020 [facility] [address], [address] [place] [address] Rosalee Jaimes MD [address] [place] [address] [address] [place], [place] [id number] Medication Refill Social History Tobacco Use Types [...] documented as of this encounter Care Teams Carton Forming Machine Adjuster Relationship Specialty Start Date End Date Rubén Alfred MD [address] [place] [address] PCP - General Family Medicine 09/22/18 documented as of this encounter
--- OUTSIDE RECORDS SUMMARY | 2025-04-12 15:35 | XMS_ITS | Encounter Summary ---
Author Organization [facility] Address [address] [place] [address] Care Team Providers Care Butcher Head Name Role Phone Christiano Taylor DO Unavailable [phone] Christiano Taylor DO Primary Care Provider +- [phone] Encounter Details Date Type Department Care Team (Late st Contact Info) Description 05/24/2024 [facility] [address] [facility] [address] [place] [address] Christiano Taylor, DO [address] [facility] [place] [address] [place] [address] Social History Tobacco Use Types Packs/Day Years [...] EDT Office Visit [facility] 703 [facility] 150 [place] [address] Wally Gonzales MD 703 [facility] 150 [place] [address] 06/28/2025 11:20 AM EST Procedure Visit [facility] 112 [facility] 120 [place] [address] Tawanda Girard DPM 3006 [facility] 5 [place] [address] documented as of this encounter Visit Diagnoses Not on filedocumented in this encounter Care Teams Butcher Head Relationship Specialty Start Date End Date Christiano Taylor DO [address] [facility] 230 [place] [address] PCP - [employer] 08/09/20 Christiano Taylor DO [address] [facility] 230 [place] [address] PCP - General Family Medicine 03/09/23 documented as of this encounter
[2025-04-12 16:19] LABS: Anion Gap 13.8; Blood Urea Nitrogen 22.0 mg/dL (7.0-18.0); Calcium 9.5 mg/dL (8.5-10.1); Carbon Dioxide 29.8 mmol/L (21.0-32.0); Chloride 103 mmol/L (98-107); Estimated GFR (African America >60 (>=60 mL/min/1.73m^2); Estimated GFR (Non-African Ame >60 (>=60 mL/min/1.73m^2); Glucose 106 mg/dL (74-106); Potassium 3.6 mmol/L (3.5-5.1); Sodium 143 mmol/L (136-145)
== END 2025-04-12 15:26 | disposition home or self-care (01) ==
PROVIDERS: PCP Family Medicine; Visit Provider Internal Medicine Interventional Cardiology
DX: I25.810 Atherosclerosis of coronary artery bypass graft(s) without angina pectoris (principal); N18.32 Chronic kidney disease, stage 3b; I50.22 Chronic systolic (congestive) heart failure; Z95.1 Presence of aortocoronary bypass graft
CPT/HCPCS: 36415; 80048